=== PATIENT | male | born 1955 | race Caucasian/White ===

== ENCOUNTER 2020-01-05 20:51 | Inpatient (IN) | payer OTHER ==
[2020-01-05] MEDS ORDERED: ASPIRIN 81 MG CHEWABLE TABLETS PO ONE (21:02)
--- NOTE | 2020-01-05 21:04 | PDOC ---
Rapid Medical Evaluation Time Seen by Provider: 01/05/20 21:01 Medical Evaluation: Allergies Allergy/AdvReac Type Severity Reaction Status Date / Time No Known Allergies Allergy Verified 12/17/11 16:52 01/05/20 21:02 CC: feeling of strap around his chest since this afternoon and subsided slightly. no other complaints. Took baby ASA this am Exam: vss, No reproducible CP, Plan: cardiac w/u Discharge Disposition - Diagnosis Chest pain - Referrals - Patient Instructions - Post Discharge Activity
[2020-01-05] MEDS ORDERED: ASPIRIN 81 MG CHEWABLE TABLETS ONE (21:16)
--- NOTE | 2020-01-05 21:26 | PDOC ---
Attending Attestation - Resident Resident Name: Jim Armendariz - ED Attending Attestation I have performed the following: I have examined & evaluated the patient, The case was reviewed & discussed with the resident, I agree w/resident's findings & plan - HPI HPI: 01/05/20 22:48 see resident hpi - Physicial Exam PE: 01/05/20 22:48 see resident exam - Medical Decision Making 01/05/20 22:48 64-year-old male with an episode of anterior chest squeezing that began after eating EKG on arrival shows a sinus rhythm at 81 bpm with a left bundle branch block Unfortunately no old is available for comparison Patient is improved after aspirin and nitroglycerin as well as Tylenol IV Troponin within normal limits at this time We will admit to telemetry observation for further evaluation Discharge - Discharge Information Problems reviewed: Yes Clinical Impression/Diagnosis: Chest pain - Follow up/Referral Referrals: Joe Ku MD [Primary Care Provider] - - Patient Discharge Instructions - Post Discharge Activity
--- NOTE | 2020-01-05 21:28 | PDOC ---
History of Present Illness - General Chief Complaint: Chest Pain Stated Complaint: CHEST TIGHTNESS Time Seen by Provider: 01/05/20 21:01 - History of Present Illness Initial Comments: 01/05/20 21:44 64 M with HLD, obesity presented to the ED for chest pain. Patient had sudden non-exertional chest pain this afternoon shortly after eating dinner. Chest pain located across the chest, felt like belt tying across the chest, pain is 4/10, sometimes radiated to the jaws bilaterally. Denies diaphoresis, N/V/fever/abdominal pain, SOB, unilat leg swelling. Patient never had chest pain. 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 Patient never had kidney stone, gallstone, or shingles. PMH: HLD, migraine. PSH: tonsil removal, kidney donator. Med: propanolol, nortriptant ., lorvastatin Allergy: none SS: denies smoking, drinking, drugs. PCP: ROS GENERAL/CONSTITUTIONAL: No fever or chills. No weakness. HEAD, EYES, EARS, NOSE AND THROAT: No change in vision. No ear pain or discharge. No sore throat. CARDIOVASCULAR: No chest pain or shortness of breath RESPIRATORY: No cough, wheezing, or hemoptysis. GASTROINTESTINAL: No nausea, vomiting, diarrhea or constipation. GENITOURINARY: No dysuria, frequency, or change in urination. MUSCULOSKELETAL: No joint or muscle swelling or pain. No neck or back pain. SKIN: No rash NEUROLOGIC: No headache, vertigo, loss of consciousness, or change in strength/sensation. ENDOCRINE: No increased thirst. No abnormal weight change HEMATOLOGIC/LYMPHATIC: No anemia, easy bleeding, or history of blood clots. ALLERGIC/IMMUNOLOGIC: No hives or skin allergy. PE GENERAL: Awake, alert, and fully oriented, in no acute distress HEAD: No signs of trauma, normocephalic, atraumatic EYES: PERRLA, EOMI, sclera anicteric, conjunctiva clear ENT: Auricles normal inspection, hearing grossly normal, nares patent, oropharynx clear without exudates. Moist mucosa NECK: Normal ROM, supple, no lymphadenopathy, JVD, or masses LUNGS: No distress, speaks full sentences, clear to auscultation bilaterally HEART: Regular rate and rhythm, normal S1 and S2, no murmurs, rubs or gallops, peripheral pulses normal and equal bilaterally. ABDOMEN: Soft, nontender, normoactive bowel sounds. No guarding, no rebound. No masses EXTREMITIES : Normal inspection, Normal range of motion, no edema. No clubbing or cyanosis. NEUROLOGICAL: Cranial nerves II through XII grossly intact. 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 Audit-10AR): Negative In the last yr the pt used illegal drug/Rx for NonMed reason: No Score: Yes response is considered Positive: 0 Screen Result (Positive result requires Nsg. DAST-10): Negative *Physical Exam - Vital Signs Last Vital Signs Temp Pulse Resp BP Pulse Ox 98.4 F 79 19 147/85 97 01/05/20 21:00 01/05/20 21:00 01/05/20 21:00 01/05/20 21:00 01/05/20 21:00 ED Treatment Course - LABORATORY CBC & Chemistry Diagram: 01/05/20 21:15 01/05/20 21:15 Discharge - Discharge Information Problems reviewed: Yes Clinical Impression/Diagnosis: Chest pain Condition: Improved - Admission Yes - Follow up/Referral Referrals: Joe Ku MD [Primary Care Provider] - - Patient Discharge Instructions - Post Discharge Activity
[2020-01-05 21:30] LABS: HEMATOCRIT 46.1 % (35.4-49); HEMOGLOBIN 15.6 GM/dL (11.7-16.9); MCH 30.4 pg (25.7-33.7); MCHC 33.8 g/dl (32.0-35.9); RBC 5.12 M/mm3 (4.00-5.60)
[2020-01-05 21:36] LABS: BASO % 0.6 % (0-2.0); EOS % 8.6 % (0-4.5); LYMPH % 27.1 % (8-40); MEAN PLT VOLUME 8.2 fl (7.5-11.1); MONO % 7.9 % (3.8-10.2); NEUT % 55.8 % (42.8-82.8); PLATELET COUNT 185 K/MM3 (134-434); RDW 13.9 % (11.9-15.9); WHITE BLOOD COUNT 10.4 K/mm3 (4.0-10.0)
[2020-01-05 21:47] LABS: INR 0.95 (0.83-1.09); PROTHROMBIN TIME (PATIENT) 11.2 SEC (9.7-13.0)
[2020-01-05 21:50] LABS: ACTIVATED PTT 26.3 SECONDS (25.2-36.5)
[2020-01-05] MEDS ORDERED: NITROGLYCERIN SUBLINGUAL 1/200 0.3 MG BTL SL ONE (22:04)
[2020-01-05] MEDS ORDERED: ACETAMINOPHEN 1000 MG/100 ML VIAL (NON FORMULARY) IVPB ONE (22:04)
[2020-01-05] MEDS ORDERED: ACETAMINOPHEN INJECTION 100 ML IVPB ONE (22:09)
[2020-01-05 22:17] LABS: ALBUMIN 3.8 g/dl (3.4-5.0); ALK PHOS 92 U/L (45-117); ANION GAP 6 MMOL/L (8-16); BLOOD UREA NITROGEN 22.8 mg/dL (7-18); CALCIUM 9.6 mg/dL (8.5-10.1); CHLORIDE 102 mmol/L (98-107); CO2 30 mmol/L (21-32); CREATININE 1.6 mg/dL (0.55-1.3); GLUCOSE,RANDOM 110 mg/dL (74-106); MAGNESIUM 2.3 mg/dL (1.8-2.4); N-TERMINAL BNP 78.3 pg/ml (5-125); POTASSIUM 4.8 mmol/L (3.5-5.1); SGOT/AST 30 U/L (15-37); SGPT/ALT 34 U/L (13-61); SODIUM 138 mmol/L (136-145); TOT PROT 7.4 g/dl (6.4-8.2)
[2020-01-05 22:47] LABS: BILIRUBIN,TOTAL 0.9 mg/dL (0.2-1)
--- NOTE | 2020-01-06 | PN ---
Teaching Attending Note Name of Resident: Samuel Ramos ATTENDING PHYSICIAN STATEMENT I saw and evaluated the patient. I reviewed the resident's note and discussed the case with the resident. I agree with the resident's findings and plan as documented. SUBJECTIVE: 64yoM with h/o obesity, HLD, uninephric s/p kidney donation 1997, and migraines who presents with acute onset chest pain since 2pm. Patient reports he has been in his usual state of health, no prior history of CAD or chest pain. After eating lunch he developed nonexertional band-like chest pressure, pain worst on the left, with radiation to bilateral jaws. Denies associated SOB or diaphoresis, no radiation to the back. The pain was constant and did not worsen or improve throughout the afternoon so he decided to come to the ED. Patient notes he had an abnormal EKG about a year ago and had an echocardiogram, has not required cardiology follow up in the interim. No prior stress test. Patient was hemodynamically stable in the ED. EKG showed LBBB, no prior EKGs available for comparison. Initial troponin was negative, creatinine notable 1.6 with unknown baseline. CXR showed nodule in the right midlung, no other acute processes. Chest pain improved s/p sublingual nitroglycerin x1. Patient also received aspirin 162mg and is admitted for further work up and management. ROS: (+) chest pain, headache after receiving nitro (-) fever, cough, syncope, palpitations, nausea/vomiting OBJECTIVE: Vital Signs - 24 hr 01/05/20 21:00 Temperature 98.4 F Pulse Rate 79 Respiratory 19 Rate Blood Pressure 147/85 O2 Sat by Pulse 97 Oximetry (%) Exam: Gen: awake, alert, NAD CV: RRR, no MRG appreciated. Chest pain non-reproducible to palpation Resp: CTAB, unlabored breathing GI: Soft, NT, ND Ext: Trace pitting edema bilaterally Neuro: AOx3, CN II-XII grossly intact Laboratory Results - last 24 hr 01/05/20 01/05/20 01/05/20 21:15 21:15 21:15 WBC 10.4 H RBC 5.12 Hgb 15.6 Hct 46.1 MCV 90.0 MCH 30.4 MCHC 33.8 RDW 13.9 Plt Count 185 MPV 8.2 Absolute Neuts (auto) 5.8 Neutrophils % 55.8 Lymphocytes % 27.1 Monocytes % 7.9 Eosinophils % 8.6 H Basophils % 0.6 Nucleated RBC % 0 PT with INR 11.20 INR 0.95 PTT (Actin FS) 26.3 Sodium 138 Potassium 4.8 Chloride 102 Carbon Dioxide 30 Anion Gap 6 L BUN 22.8 H Creatinine 1.6 H Est GFR (CKD-EPI)AfAm 52.36 Est GFR (CKD-EPI)NonAf 45.18 Random Glucose 110 H Calcium 9.6 Magnesium 2.3 Total Bilirubin 0.9 AST 30 ALT 34 Alkaline Phosphatase 92 Creatine Kinase 101 Troponin I < 0.02 B-Natriuretic Peptide 78.3 Total Protein 7.4 Albumin 3.8 ASSESSMENT AND PLAN: 64yoM with h/o obesity, HLD, uninephric s/p kidney donation 1997, and migraines who presents with acute onset chest pain since 2pm admitted for ACS rule out. Chest pain, ACS rule out Does have numerous risk factors for CAD including obesity, HLD Characteristics of his chest pain are concerning for unstable angina s/p aspirin and nitroglycerin in ED with improvement; initial troponin negative EKG with LBBB, no priors available - check fasting lipid panel, A1c - serial EKG - tele - troponins - continue aspirin - NPO overnight pending possible nuclear stress test - cardiology consult in AM - please obtain outpatient EKG for comparison if possible Uninephric, elevated creatinine Creatinine 1.6 on admission, baseline unknown - gentle hydration overnight while NPO - trend renal function - avoid nephrotoxic meds - obtain outpatient labs in AM if possible Chronic, stable HLD: high-intensity statin DVT ppx: heparin subq
[2020-01-06] MEDS ORDERED: SODIUM CHLORIDE 1,000 ML IV SCH ×2 (01:00→13:00)
--- NOTE | 2020-01-06 01:01 | HP ---
CHIEF COMPLAINT: "band-like chest pressure" PCP: Dr. Ku HISTORY OF PRESENT ILLNESS: 64 year old male patient with past medical history of HLD, Obestiy, and Migraine, who presented to the emergency room with a band-like chest pressure that began in the afternoon after lunch, where he ate a hotdog. The patient denies any precipitating events. The patient denies any past occurrences of his symptoms. The patient did not think much of his chest pressure until dinner, when he felt a little tired. He called his brother, who had an DE at age 59, and asked whether his chest pressure could be a heart attack, and his brother advised him to go to the emergency room. The chest pressure is constant, radiates to the jaws, and was 5/10 in intensity when the patient came to the ED. Nothing makes the pressure worse. The patient tried to take Tums and and bicarb, neither of which made the pressure better. The patient received nitro in the ED, which did succeed in alleviating the pressure; however, the patient still has mild pressure centered around his left armpit area. The patient reports taking a low dose propranolol and nortriptyline for migraine prophylaxis. He takes them every day and is compliant with taking his medications. He has not had any migraines in the recent past. The patient was sent last year to the [facility] Dr. Erin Ho by his PCP because of a "lab abnormality". Dr. Ho performed tests and told the patient that he is healthy. The patient does not recall any stress test in the recent past. The patient is not aware of any ECG abnormality such as a left bundle branch block in the past. He had an ECHO in 03/2019 which showed impaired left ventricular relaxation with an EF of 50%. ER course was notable for: (1) ECG (NSR 81bpm left bundle branch block and 1st degree AV block [WV interval 252ms] QTc 487ms). No old ECG was found to compare. 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 Rides a bike, but hasn't been riding his bike in 2 months due to COVID. Diet: "Balanced diet" that includes fruits and vegetables. Was on the keto diet before COVID started and lost weight, but ever since VI has been eating more cookies, so his weight has increased from 225 to 240lbs. Allergies No Known Allergies Allergy (Verified 12/17/11 16:52) HOME MEDICATIONS: REVIEW OF SYSTEMS CONSTITUTIONAL: mild fatigue Absent: no fever, no chills, no body aches HEENT: acid taste in mouth Absent: CARDIOVASCULAR: band-like chest pressure Absent: no acid reflux, no palpitations RESPIRATORY: Absent: no shortness of breath GASTROINTESTINAL: Absent: no nausea, no vomiting, no diarrhea, no constipation GENITOURINARY: Absent: no dysuria, no foamy urine NEUROLOGIC: Absent: no headache PHYSICAL EXAMINATION Vital Signs - 24 hr 01/05/20 01/06/20 21:00 00:17 Temperature 98.4 F Pulse Rate 79 Pulse Rate [ 78 Apical] Respiratory 19 16 Rate Blood Pressure 147/85 Blood Pressure 138/78 [Left Arm] O2 Sat by Pulse 97 98 Oximetry (%) GENERAL: Awake, alert, and fully oriented, in no acute distress. HEAD: Normal with no signs of trauma. EYES: Pupils equal, round and reactive to light, extraocular movements intact. No lid lag. EARS, NOSE, THROAT: Ears normal, nares patent, oropharynx clear without exudates. Moist mucous membranes. NECK: Normal range of motion, supple without lymphadenopathy, JVD, or masses. LUNGS: Breath sounds equal, clear to auscultation bilaterally. No wheezes, and no crackles. No accessory muscle use. HEART: Regular rate and rhythm, normal S1 and S2 without murmur, rub or gallop. ABDOMEN: Soft, nontender, not distended, normoactive bowel sounds, no guarding, no rebound, no masses. MUSCULOSKELETAL: Normal range of motion at all joints. No bony deformities or tenderness. No reproducible symptoms on palpation of chest wall. UPPER EXTREMITIES: 2+ pulses, warm, well-perfused. No cyanosis. No clubbing. No peripheral edema. LOWER EXTREMITIES: 2+ pulses, warm, well-perfused. No calf tenderness. 1+ pitting edema bilaterally. NEUROLOGICAL: Normal speech. PSYCHIATRIC: Cooperative. Good eye contact. Appropriate mood and affect. SKIN: Warm, dry, normal turgor, no rashes or lesions noted, normal capillary refill. Laboratory Results - last 24 hr 01/05/20 01/05/20 01/05/20 21:15 21:15 21:15 WBC 10.4 H RBC 5.12 Hgb 15.6 Hct 46.1 MCV 90.0 MCH 30.4 MCHC 33.8 RDW 13.9 Plt Count 185 MPV 8.2 Absolute Neuts (auto) 5.8 Neutrophils % 55.8 Lymphocytes % 27.1 Monocytes % 7.9 Eosinophils % 8.6 H Basophils % 0.6 Nucleated RBC % 0 PT with INR 11.20 INR 0.95 PTT (Actin FS) 26.3 Sodium 138 Potassium 4.8 Chloride 102 Carbon Dioxide 30 Anion Gap 6 L BUN 22.8 H Creatinine 1.6 H Est GFR (CKD-EPI)AfAm 52.36 Est GFR (CKD-EPI)NonAf 45.18 Random Glucose 110 H Calcium 9.6 Magnesium 2.3 Total Bilirubin 0.9 AST 30 ALT 34 Alkaline Phosphatase 92 Creatine Kinase 101 Troponin I < 0.02 B-Natriuretic Peptide 78.3 Total Protein 7.4 Albumin 3.8 ASSESSMENT/PLAN: 64 year old male patient with past medical history of HLD, Obestiy, and Migraine, who presented to the emergency room with a band-like chest pressure radiating to the jaws. ECG showed left bundle branch block. Chest pressure was alleviated with nitro. 1. Possible unstable angina - Band-like chest pressure radiating to the jaws - Possibly new-onset left bundle branch block on ECG. No old ECG could be found to compare. > Consulted Cardio > Tele > Repeat Trop > Repeat ECG > Lipid Panel and Cholesterol > A1C > Daily ASA > Possible outpatient stress test depending on Cardio's recommendations 2. VERONIQUE - Creatinine of 1.6 > Gentle IV Fluid Hydration > Monitoring Creatinine 3. Lung Nodule - Hyperdense nodule in right midlung 1.7x1.1cm suggestive of a calcified nodule > Outpatient f/u with Pulmonology 4. HLD > Atorvastatin Medications were reconcilliated with the pharmacy at 4:00am 01/06/2020. #FEN - Normal Saline @ 43ml/hr. Monitor Electrolytes DVT PPx - Heparin SQ Family Medical History Family History: As Documented Family Hx Cardiac Disorders: Brother (DE at age 59) Visit type - Emergency Visit Emergency Visit: Yes ED Registration Date: 01/05/20 Care time: The patient presented to the Emergency Department on the above date and was hospitalized for further evaluation of their emergent condition. - New Patient This patient is new to me today: Yes Date on this admission: 01/06/20 - Critical Care Critical Care patient: No ATTENDING PHYSICIAN STATEMENT I saw and evaluated the patient. I reviewed the resident's note and discussed the case with the resident. I agree with the resident's findings and plan as documented. SUBJECTIVE: OBJECTIVE: ASSESSMENT AND PLAN:
[2020-01-06] MEDS ORDERED: HEPARIN NA (PORCINE) 5,000 UNITS/ML 1ML VIAL ONE ×2 (06:08→14:36)
[2020-01-06] MEDS: HEPARIN NA (PORCINE) 5,000 UNITS/ML 1ML VIAL SQ SCH ×2 (06:11→14:33)
[2020-01-06 08:37] LABS: BASO % 0.8 % (0-2.0); EOS % 9.1 % (0-4.5); HEMATOCRIT 44.5 % (35.4-49); LYMPH % 27.1 % (8-40); MCH 30.3 pg (25.7-33.7); MCHC 33.6 g/dl (32.0-35.9); MEAN CELL VOLUME 90.2 fl (80-96); MEAN PLT VOLUME 8.1 fl (7.5-11.1); MONO % 8.7 % (3.8-10.2); NEUT % 54.3 % (42.8-82.8); PLATELET COUNT 173 K/MM3 (134-434); RBC 4.94 M/mm3 (4.00-5.60); RDW 13.6 % (11.9-15.9); WHITE BLOOD COUNT 8.9 K/mm3 (4.0-10.0)
[2020-01-06 08:44] LABS: POTASSIUM 4.3 mmol/L (3.5-5.1)
[2020-01-06 08:58] LABS: BLOOD UREA NITROGEN 21.9 mg/dL (7-18); CALCIUM 8.9 mg/dL (8.5-10.1); CREATININE 1.5 mg/dL (0.55-1.3); MAGNESIUM 2.4 mg/dL (1.8-2.4); PHOSPHOROUS 3.6 mg/dL (2.5-4.9)
[2020-01-06] MEDS ORDERED: ASPIRIN COATED 81 MG TABLET.EC PO SCH (10:00)
--- NOTE | 2020-01-06 10:10 | EKG ---
Test Reason : Blood Pressure : / mmHG Vent. Rate : 081 BPM Atrial Rate : 081 BPM P-R Int : 252 ms QRS Dur : 156 ms QT Int : 420 ms P-R-T Axes : 055 029 096 degrees QTc Int : 487 ms SINUS RHYTHM WITH 1ST DEGREE A-V BLOCK LEFT BUNDLE BRANCH BLOCK ABNORMAL ECG NO PREVIOUS ECGS AVAILABLE Confirmed by ARGENIS NELSON MD ([id number]) on 01/06/2020 10:10:21 AM Referred By: Confirmed By:ARGENIS NELSON MD
[2020-01-06] MEDS ORDERED: ASPIRIN COATED 81 MG TABLET.EC ONE (10:33)
[2020-01-06] MEDS ORDERED: REGADENOSON 0.4 MG/5 ML PRE-FILLED SYRINGE IVPUSH ONE ×2 (12:00→13:17)
--- NOTE | 2020-01-06 12:44 | CON.CARD ---
Cardiology Consult (text) - Consultation Consultation Note: cc: cp hpi: 64 m hx htn, hld, here with cp. Yesterday was relaxing and noticed cp. [place] like pressure across front of chest. No radiation, no other sxs. No sob palps dizzy loc pnd orthopnea le edema. CP resolved now. Was doing some lifting last week and thought maybe he had sore muscle. pmh: per hpi psh: back surgery social: no tob fam: brother with cad, mi 59 ros: per hpi; all others nl meds: Home Medications Medication Instructions Recorded Lovastatin 40 mg PO DAILY 01/06/20 Nortriptyline HCl [Pamelor -] 50 mg PO HS 01/06/20 propRANOLol HCL [Propranolol HCl 120 mg PO HS 01/06/20 ER] Vital Signs Period Temp Pulse Resp BP Sys/Alcaraz Pulse Ox Last 24 Hr 98 F-98.4 F 67-79 15-19 132-147/67-85 94-100 nad no jvd rrr s1s2 no mrg cta bl nl eff aao3 no le e/c/c abd nt nd pos bs no jaundice diaphroesis pos dp pt no carotid bruits aao3 Laboratory Last Values WBC 8.9 K/mm3 (4.0-10.0) 01/06/20 07:05 RBC 4.94 M/mm3 (4.00-5.60) 01/06/20 07:05 Hgb 15.0 GM/dL (11.7-16.9) 01/06/20 07:05 Hct 44.5 % (35.4-49) 01/06/20 07:05 MCV 90.2 fl (80-96) 01/06/20 07:05 MCH 30.3 pg (25.7-33.7) 01/06/20 07:05 MCHC 33.6 g/dl (32.0-35.9) 01/06/20 07:05 RDW 13.6 % (11.9-15.9) 01/06/20 07:05 Plt Count 173 K/MM3 (134-434) 01/06/20 07:05 MPV 8.1 fl (7.5-11.1) 01/06/20 07:05 Absolute Neuts (auto) 4.8 K/mm3 (1.5-8.0) 01/06/20 07:05 Neutrophils % 54.3 % (42.8-82.8) 01/06/20 07:05 Lymphocytes % 27.1 % (8-40) 01/06/20 07:05 Monocytes % 8.7 % (3.8-10.2) 01/06/20 07:05 Eosinophils % 9.1 % (0-4.5) H 01/06/20 07:05 Basophils % 0.8 % (0-2.0) 01/06/20 07:05 Nucleated RBC % 0 % (0-0) 01/06/20 07:05 PT with INR 11.20 SEC (9.7-13.0) 01/05/20 21:15 INR 0.95 (0.83-1.09) 01/05/20 21:15 PTT (Actin FS) 26.3 SECONDS (25.2-36.5) 01/05/20 21:15 Sodium 140 mmol/L (136-145) 01/06/20 07:05 Potassium 4.3 mmol/L (3.5-5.1) 01/06/20 07:05 Chloride 105 mmol/L (98-107) 01/06/20 07:05 Carbon Dioxide 27 mmol/L (21-32) 01/06/20 07:05 Anion Gap 7 MMOL/L (8-16) L 01/06/20 07:05 BUN 21.9 mg/dL (7-18) H 01/06/20 07:05 Creatinine 1.5 mg/dL (0.55-1.3) H 01/06/20 07:05 Est GFR (CKD-EPI)AfAm 56.61 01/06/20 07:05 Est GFR (CKD-EPI)NonAf 48.84 01/06/20 07:05 Random Glucose 95 mg/dL (74-106) 01/06/20 07:05 Hemoglobin A1c % 5.5 % (4.2-6.3) 01/06/20 07:05 Calcium 8.9 mg/dL (8.5-10.1) 01/06/20 07:05 Phosphorus 3.6 mg/dL (2.5-4.9) 01/06/20 07:05 Magnesium 2.4 mg/dL (1.8-2.4) 01/06/20 07:05 Total Bilirubin 0.9 mg/dL (0.2-1) 01/05/20 21:15 AST 30 U/L (15-37) 01/05/20 21:15 ALT 34 U/L (13-61) 01/05/20 21:15 Alkaline Phosphatase 92 U/L (45-117) 01/05/20 21:15 Creatine Kinase 101 U/L (26-308) 01/05/20 21:15 Troponin I < 0.02 ng/ml (0.00-0.05) 01/06/20 07:05 B-Natriuretic Peptide 78.3 pg/ml (5-125) 01/05/20 21:15 Total Protein 7.4 g/dl (6.4-8.2) 01/05/20 21:15 Albumin 3.8 g/dl (3.4-5.0) 01/05/20 21:15 Triglycerides 208 mg/dL (0-150) H 01/06/20 07:05 Cholesterol 161 mg/dL (50-200) 01/06/20 07:05 Total LDL Cholesterol 94 mg/dL (5-100) 01/06/20 07:05 HDL Cholesterol 40 mg/dL (40-60) 01/06/20 07:05 cxr: no chf echo 03/2019: low nl lvef, nl rv, mild mr, mild tr, nl rvsp ecg: sr, old lbbb a/p: 64 m hx htn, hld, here with cp. cp: -resolved now -trops neg, no signs acs -ecg with old lbbb -recent echo unremarkable -given risk factors and fam hx will check nuclear stress test, if benign then ok for dc from cardiac pov htn: -cont home med hld: -cont statin
--- NOTE | 2020-01-06 13:45 | ECHO ---
Name: ANN-MARIE GARCIA Exam:Adult Echocardiogram Study Date: 01/06/2020 11:20 AM Age: 64 yrs Height: 74 in Weight: 240 lb BSA: 2.3 m2 MMode/2D Measurements & Calculations IVSd: 0.85 cm Ao root diam: 3.1 cm LVIDd: 4.4 cm LA dimension: 2.3 cm LVIDs: 3.4 cm ACS: 2.0 cm LVPWd: 0.88 cm EDV(Teich): 88.1 ml LVOT diam: 2.0 cm ESV(Teich): 48.4 ml LVLd ap4: 7.2 cm SV(MOD-sp4): 39.0 ml EDV(MOD-sp4): 84.0 ml LVLs ap4: 6.0 cm ESV(MOD-sp4): 45.0 ml LAV (MOD-bp): 25.0 ml TAPSE: 2.5 cm RV S Erick: 10.2 cm/sec Doppler Measurements & Calculations Ao V2 max: 100.4 cm/sec LV V1 max P.6 mmHg Ao max P.0 mmHg LV V1 mean P.94 mmHg Ao V2 mean: 66.4 cm/sec LV V1 max: 63.7 cm/sec Ao mean P.0 mmHg LV V1 mean: 46.1 cm/sec Ao V2 VTI: 16.8 cm LV V1 VTI: 11.5 cm AJITH(I,D): 2.1 cm2 AJITH(V,D): 1.9 cm2 SV(LVOT): 35.1 ml TR max erick: 219.9 cm/sec TR max P.7 mmHg PA V2 max: 92.3 cm/sec PI end-d erick: 99.1 cm/sec PA max P.4 mmHg PA acc slope: 497.4 cm/sec2 PA acc time: 0.11 sec Med Peak E' Erick: 5.9 cm/sec PA pr(Accel): 29.9 mmHg Lat Peak E' Erick: 9.8 cm/sec Tech Comments TDS due to orientation of patient's heart. Procedure A complete two-dimensional transthoracic echocardiogram was performed (2D, M-mode, Doppler and color flow Doppler). Left Ventricle The left ventricle is normal in size. Left ventricular systolic function is low normal. Ejection Frac tion = 50%. Septal motion is consistent with conduction abnormality. Right Ventricle The right ventricle is normal in size and function. Atria Normal left and right atrial size and function. Mitral Valve There is no mitral regurgitation noted. Tricuspid Valve There is trace tricuspid regurgitation. There was insufficient TR detected to calculate RV systolic p ressure. Aortic Valve No hemodynamically significant valvular aortic stenosis. No aortic regurgitation is present. Pulmonic Valve There is no pulmonic valvular regurgitation. Great Vessels The aortic root is normal size. Pericardium/Pleura There is no pericardial effusion. Interpretation Summary Left ventricular systolic function is low normal. Septal motion is consistent with conduction abnormality. The right ventricle is normal in size and function. There is trace tricuspid regurgitation. MD Diaz Bee 01/06/2020 01:44 PM
--- NOTE | 2020-01-06 13:59 | PN ---
Teaching Attending Note Name of Resident: Attila eWrner ATTENDING PHYSICIAN STATEMENT I saw and evaluated the patient. I reviewed the resident's note and discussed the case with the resident. I agree with the resident's findings and plan as documented. SUBJECTIVE: patient feels well, has no complaints OBJECTIVE: Vital Signs Period Temp Pulse Resp BP Sys/Alcaraz Pulse Ox Last 24 Hr 98 F-98.4 F 67-79 15-19 132-147/67-85 94-100 GENERAL: Awake, alert, and fully oriented, in no acute distress. HEAD: Normal with no signs of trauma. EYES: Pupils equal, round and reactive to light, extraocular movements intact, sclera anicteric, conjunctiva clear. No lid lag. EARS, NOSE, THROAT: Ears normal, nares patent, oropharynx clear without exudates. Moist mucous membranes. NECK: Normal range of motion, supple without lymphadenopathy, JVD, or masses. LUNGS: Breath sounds equal, clear to auscultation bilaterally. No wheezes, and no crackles. No accessory muscle use. HEART: Regular rate and rhythm, normal S1 and S2 without murmur, rub or gallop. ABDOMEN: Soft, nontender, not distended, normoactive bowel sounds, no guarding, no rebound, no masses. No hepatomegaly or splenomegaly. obese MUSCULOSKELETAL: Normal range of motion at all joints. No bony deformities or tenderness. No CVA tenderness. UPPER EXTREMITIES: 2+ pulses, warm, well-perfused. No cyanosis. No clubbing. Cap refill <2 seconds. No peripheral edema. LOWER EXTREMITIES: 2+ pulses, warm, well-perfused. No calf tenderness. No peripheral edema. NEUROLOGICAL: Cranial nerves II-XII intact. Normal speech. Normal gait. PSYCHIATRIC: Cooperative. Good eye contact. Appropriate mood and affect. SKIN: Warm, dry, normal turgor, no rashes or lesions noted. ASSESSMENT AND PLAN: 64 y/o M with Hx of HLD, Obesity who presents with chest pain Chest Pain: ACS ruled out EKG with LBBB morphology Check Stress test Check Echo Check Lipid Panel, A1c, TSH Cont ASA, Statin PRN SL Nitro Lung Nodule: Will need outpatient follow up with CT scan Rest of plan as per resident note
--- NOTE | 2020-01-06 15:28 | EKG ---
Test Reason : Blood Pressure : / mmHG Vent. Rate : 079 BPM Atrial Rate : 079 BPM P-R Int : 224 ms QRS Dur : 150 ms QT Int : 418 ms P-R-T Axes : 058 014 098 degrees QTc Int : 479 ms SINUS RHYTHM WITH 1ST DEGREE A-V BLOCK LEFT BUNDLE BRANCH BLOCK ABNORMAL ECG WHEN COMPARED WITH ECG OF 05-JAN-2020 21:22, NO SIGNIFICANT CHANGE WAS FOUND Confirmed by LESLIE BISHOP, ARGENIS ([id number]) on 01/06/2020 3:28:27 PM Referred By: Confirmed By:ARGENIS NELSON MD
--- NOTE | 2020-01-06 16:28 | DS ---
Physical Exam: SUBJECTIVE: Patient seen and examined at bedside. No acute events reported overnight. This morning, patient reports resolution of chest pain symptoms. OBJECTIVE: Vital Signs Period Temp Pulse Resp BP Sys/Alcaraz Pulse Ox Last 24 Hr 98 F-98.4 F 67-81 15-19 132-147/67-85 94-100 PHYSICAL EXAM GENERAL: AAOx3, in no acute distress HEENT: NCAT, PERRLA, EOMI, sclera anicteric, conjunctiva clear, oropharynx clear w/o exudates. MMM. NECK: Normal ROM, supple, no lymphadenopathy, JVD, or masses LUNGS: CTABL no wheezes/ rhonchi/ rales. No distress, speaks in full sentences. No increased work of breathing. HEART: RRR, normal S1 S2, no M/R/G, peripheral pulses 2+ and equal b/l ABDOMEN: Soft, NTND, + BS. No guarding or rebound. No hepatomegaly or splenomegaly. MSK: ROM WNL EXTREMITIES: Normal inspection. No peripheral edema. No clubbing or cyanosis. NEUROLOGICAL: CN II-XII intact. Normal speech, normal gait, no focal sensorimotor deficits. SKIN: Warm, Dry, normal turgor, no rashes or lesions noted LABS Laboratory Results - last 24 hr CBC, BMP 01/06/20 07:05 01/06/20 07:05 01/05/20 01/05/20 01/05/20 21:15 21:15 21:15 WBC 10.4 H RBC 5.12 Hgb 15.6 Hct 46.1 MCV 90.0 MCH 30.4 MCHC 33.8 RDW 13.9 Plt Count 185 MPV 8.2 Absolute Neuts (auto) 5.8 Neutrophils % 55.8 Lymphocytes % 27.1 Monocytes % 7.9 Eosinophils % 8.6 H Basophils % 0.6 Nucleated RBC % 0 PT with INR 11.20 INR 0.95 PTT (Actin FS) 26.3 Sodium 138 Potassium 4.8 Chloride 102 Carbon Dioxide 30 Anion Gap 6 L BUN 22.8 H Creatinine 1.6 H Est GFR (CKD-EPI)AfAm 52.36 Est GFR (CKD-EPI)NonAf 45.18 Random Glucose 110 H Hemoglobin A1c % Calcium 9.6 Phosphorus Magnesium 2.3 Total Bilirubin 0.9 AST 30 ALT 34 Alkaline Phosphatase 92 Creatine Kinase 101 Troponin I < 0.02 B-Natriuretic Peptide 78.3 Total Protein 7.4 Albumin 3.8 Triglycerides Cholesterol Total LDL Cholesterol HDL Cholesterol TSH 01/06/20 01/06/20 01/06/20 07:05 07:05 07:05 WBC 8.9 RBC 4.94 Hgb 15.0 Hct 44.5 MCV 90.2 MCH 30.3 MCHC 33.6 RDW 13.6 Plt Count 173 MPV 8.1 Absolute Neuts (auto) 4.8 Neutrophils % 54.3 Lymphocytes % 27.1 Monocytes % 8.7 Eosinophils % 9.1 H Basophils % 0.8 Nucleated RBC % 0 PT with INR INR PTT (Actin FS) Sodium 140 Potassium 4.3 Chloride 105 Carbon Dioxide 27 Anion Gap 7 L BUN 21.9 H Creatinine 1.5 H Est GFR (CKD-EPI)AfAm 56.61 Est GFR (CKD-EPI)NonAf 48.84 Random Glucose 95 Hemoglobin A1c % 5.5 Calcium 8.9 Phosphorus 3.6 Magnesium 2.4 Total Bilirubin AST ALT Alkaline Phosphatase Creatine Kinase Troponin I B-Natriuretic Peptide Total Protein Albumin Triglycerides 208 H Cholesterol 161 Total LDL Cholesterol 94 HDL Cholesterol 40 TSH 3.92 H 01/06/20 07:05 WBC RBC Hgb Hct MCV MCH MCHC RDW Plt Count MPV Absolute Neuts (auto) Neutrophils % Lymphocytes % Monocytes % Eosinophils % Basophils % Nucleated RBC % PT with INR INR PTT (Actin FS) Sodium Potassium Chloride Carbon Dioxide Anion Gap BUN Creatinine Est GFR (CKD-EPI)AfAm Est GFR (CKD-EPI)NonAf Random Glucose Hemoglobin A1c % Calcium Phosphorus Magnesium Total Bilirubin AST ALT Alkaline Phosphatase Creatine Kinase Troponin I < 0.02 B-Natriuretic Peptide Total Protein Albumin Triglycerides Cholesterol Total LDL Cholesterol HDL Cholesterol TSH HOSPITAL COURSE: 64 year old male patient with past medical history of HLD, Obestiy, and Migraine, who presented to the emergency room with a band-like chest pressure radiating to the jaws. ECG showed left bundle branch block. Chest pressure was alleviated with nitro. Possibly new-onset left bundle branch block on ECG. No old ECG could be found to compare. Patient was admitted to telemetry with cardiology consult. Cardiac workup including repeat EKG, echocardiogram, stress test was negative for acute cardiac events. Troponins were negative throughout the patient's stay. Patient had an elevated creatinine at admission which was treated with gentle IV hydration. Incidental findings upon imaging was a hyperdense lung nodule in the right mid lung 1.7 x 1.1 cm. Patient was told to follow up with his PCP about the nodule. Patient was discharged after multiple cardiac imaging was negative for an acute cardiac process with outpatient cardiology followup within 1 week. Date of Admission:01/05/20 01/05/2020- portable CXR- Impression: Hyperdense nodule in the right midlung measuring 1.7 x 1.1 cm suggestive of a calcified nodule. Correlation with a nonemergent CT scan of the chest would be helpful for further evaluation and w ould serve as a baseline for future follow-up. 01/06/2020- sinus rhythm with 1st degree AV block. LBBB, abnormal EKG, 01/06/2020- Left ventricular systolic function is low normal, septal motion is con sistent with conduction abnormality, right ventricle is normal in size and function. There is trace tricuspid regurgitation 01/06/2020- G AMRIT DEBRA 1 DAY- EXERCISE RESULTS: Nondiagnostic stress ecg due to baseline LBBB. NUCLEAR RESULTS: No ischemia. LVEF 52%. Date of Discharge: 01/06/20 Minutes to complete discharge: 36 Discharge Summary Problems reviewed: Yes Reason For Visit: CHEST PAIN Current Active Problems Chest pain (Acute) Condition: Stable - Instructions Diet, Activity, Other Instructions: Your visit: You were admitted to the hospital for chest pain. We found no acute abnormalities of your heart. You were treated with fluids and medications with improvement of your symptoms. -During your visit, we did a x-ray of your chest which showed a 1.7 x 1.1 cm nodule in your right lung. Please follow up with your Primary Care Provider about this. Cardiac Stress Test Results: Exercise Hemodynamics: Resting heart rate was 93 BPM, peak Lexiscan infusion heart rate was 108 BPM. representing- of the maximum predicted heart rate. Resting BP was 122/78 mm Hg. Peak Lexiscan infusion BP was 146/86 mm/Hg. Electrocardiographic findings: baseline sinus rhythm with left bundle branch block. Nondiagnostic stress ecg due to baseline left bundle branch block. Gated Perfusion scan and Spect images: small size, mild intensity fixed defects of inferiorlateral and anteroseptal roldan with normal wall motion, c/w artifact, no ischemia. no TID -Exercise Results: Nondiagnostic stress ecg due to baseline left bundle branch block -Nuclear Results: Left ventricular ejection fraction: 52% Medications changes: -Continue to take all your home medications as prescribed. Follow up: - Please follow-up with your Doctor Of Audiology, Dr. Bee in 1 week to go over the imaging of your heart that we did on you. - Visit with your Primary Care Provider, Dr. Ku in 1 weeks to get blood work done to asses your kidney function. Additional Instructions: -You are being discharged to your home. -Please return to the Emergency Department if you experience worsening pain, fevers, chills, shortness of breath, or chest pain, or if you experience any worsening, new or concerning symptoms. Referrals: Diaz Bee MD [Staff Physician] - Joe Ku MD [Primary Care Provider] - Disposition: HOME - Home Medications Comprehensive Discharge Medication List: Ambulatory Orders Ciclopirox Olamine [Ciclopirox] 30 gm TP BID 01/06/20 Lovastatin 40 mg PO DAILY 01/06/20 Nortriptyline HCl [Pamelor -] 50 mg PO HS 01/06/20 propRANOLol HCL [Propranolol HCl ER] 120 mg PO HS 01/06/20 This patient is new to me today: Yes Date on this admission: 01/06/20 Emergency Visit: Yes ED Registration Date: 01/05/20 Care time: The patient presented to the Emergency Department on the above date and was hospitalized for further evaluation of their emergent condition. Critical Care patient: No - Discharge Referral Referred to [facility] No ATTENDING PHYSICIAN STATEMENT I saw and evaluated the patient. I reviewed the resident's note and discussed the case with the resident. I agree with the resident's findings and plan as documented. SUBJECTIVE: OBJECTIVE: ASSESSMENT AND PLAN:
[2020-01-06 16:52] VITALS: BP 145/74; PULSE 80; TEMP 97.7; BMI 32.5
[2020-01-06] MEDS ORDERED: ATORVASTATIN CA 40 MG TABLET (FP) PO SCH (22:00)
[2020-01-06] MEDS ORDERED: NORTRIPTYLINE HCL 50 MG CAPSULE PO SCH (22:00)
== END 2020-01-06 17:45 | disposition home or self-care (01) | DRG 313 ==
LOC: JER 20:51 → OBSVTOIN 22:51 → JERBED 22:51 → J4W 01-06 15:38
PROVIDERS: ADMIT Hospitalist; ATTEND Internal Medicine
DX: R07.89 Other chest pain (principal); N17.9 Acute kidney failure, unspecified; E78.5 Hyperlipidemia, unspecified; E66.9 Obesity, unspecified; G43.909 Migraine, unspecified, not intractable, without status migrainosus; I44.7 Left bundle-branch block, unspecified; I44.0 Atrioventricular block, first degree; R91.1 Solitary pulmonary nodule; Z68.32 Body mass index [BMI] 32.0-32.9, adult
CPT/HCPCS: 36415; 71045-TC-FY; 78452-TC; 80048; 80053; 80061; 82550; 83036; 83721; 83735; 83880; 84100; 84443; 84484; 85025; 85610; 85730; 93005; 93010; 93017; 93306-TC; 99285-25; A9502; J0131; J1644; J2785; U0003

== ENCOUNTER 2020-02-18 13:23 | Inpatient (IN) | payer OTHER ==
--- NOTE | 2020-02-18 13:42 | PDOC ---
Rapid Medical Evaluation Chief Complaint: Shortness of Breath Time Seen by Provider: 02/18/20 13:39 Medical Evaluation: Allergies Allergy/AdvReac Type Severity Reaction Status Date / Time morphine AdvReac Mild Verified 02/18/20 13:28 Vital Signs Temp Pulse Resp BP Pulse Ox 98.7 F 88 22 H 138/76 96 02/18/20 13:29 02/18/20 13:29 02/18/20 13:29 02/18/20 13:29 02/18/20 13:29 02/18/20 13:40 I have performed a brief in-person evaluation of this patient. The patient presents with a chief complaint of: Patient with no significant past medical history present with complaint of 3-day history of persistent shortness of breath worsens when he goes up a flight of stairs. Patient was seen in urgent care today for shortness of breath and was advised to come to emergency room. Denies chest pain, palpitation, cough, fever, chills, dizziness. Patient present with a EKG from urgent care which shows bundle branch block is with some PVCs. Denies any other symptoms Pertinent physical exam findings: Regular heart rate and rhythm. Lungs clear to auscultation bilateral with patient with mild labored breathing I have ordered the following: EKG The patient will proceed to the ED for further evaluation. Discharge Disposition - Diagnosis SOB (shortness of breath) on exertion - Discharge Dispostion Condition at time of disposition: Stable - Referrals - Patient Instructions - Post Discharge Activity
--- NOTE | 2020-02-18 14:14 | PDOC ---
History of Present Illness - General Chief Complaint: Shortness of Breath Stated Complaint: SHORTNESS OF BREATH Time Seen by Provider: 02/18/20 13:39 History Source: Patient - History of Present Illness Initial Comments: 02/18/20 14:13 64M w/hx HLD, migraines p/w two days of worsening dyspnea, orthopnea. He reports that two days ago he realized that he was increasingly short of breath with exertion while walking around the house. He reports dutifully remaining in quarantine and maintaining safe social distancing, except for occasionally watching his 4yo granddaughter. He reports that he has needed to prop himself up to sleep at night, and that his sob worsens while laying flat. He reports presenting to Urgent Care today for his worsening shortness of breath and dyspnea, and was found to have O2% to 96% on room air that dropped to 90% with ambulation. He denies any lower extremity swelling, fevers, chills, cough, weakness, confusion, chest pain, or palpitations. 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 Audit-10AR): Negative In the last yr the pt used illegal drug/Rx for NonMed reason: No Score: Yes response is considered Positive: 0 Screen Result (Positive result requires Nsg. DAST-10): Negative Review of Systems - Review of Systems Able to Perform ROS?: Yes Comments:: 02/18/20 15:01 GENERAL/CONSTITUTIONAL: No fever or chills. No weakness. HEAD, EYES, EARS, NOSE AND THROAT: No change in vision. No ear pain or dischar ge. No sore throat. CARDIOVASCULAR: Shortness of breath. Orthopnea. No chest pain RESPIRATORY: No cough, wheezing, or hemoptysis. GASTROINTESTINAL: No nausea, vomiting, diarrhea or constipation. GENITOURINARY: No dysuria, frequency, or change in urination. MUSCULOSKELETAL: No joint or muscle swelling or pain. No neck or back pain. SKIN: No rash NEUROLOGIC: No headache, vertigo, loss of consciousness, or change in strength/sensation. ENDOCRINE: No increased thirst. No abnormal weight change HEMATOLOGIC/LYMPHATIC: No anemia, easy bleeding, or history of blood clots. ALLERGIC/IMMUNOLOGIC: No hives or skin allergy. *Physical Exam - Vital Signs Last Vital Signs Temp Pulse Resp BP Pulse Ox 98.7 F 88 22 H 138/76 96 02/18/20 13:29 02/18/20 13:29 02/18/20 13:29 02/18/20 13:29 02/18/20 13:29 - Physical Exam 02/18/20 15:04 GENERAL: Awake, alert, and fully oriented, in no acute distress HEAD: No signs of trauma, normocephalic, atraumatic EYES: PERRLA, EOMI, sclera anicteric, conjunctiva clear ENT: Auricles normal inspection, hearing grossly normal, nares patent, oropharynx clear without exudates. Moist mucosa NECK: Normal ROM, supple, no lymphadenopathy, JVD, or masses LUNGS: No distress, speaks full sentences, clear to auscultation bilaterally HEART: Regular rate and rhythm, normal S1 and S2, no murmurs, rubs or gallops, peripheral pulses normal and equal bilaterally. ABDOMEN: Soft, nontender, normoactive bowel sounds. No guarding, no rebound. No masses EXTREMITIES : Normal inspection, Normal range of motion, no edema. No clubbing or cyanosis NEUROLOGICAL: Cranial nerves II through XII grossly intact. Normal speech, normal gait, no focal sensorimotor deficits SKIN: Warm, Dry, normal turgor, no rashes or lesions noted ED Treatment Course - LABORATORY CBC & Chemistry Diagram: 02/18/20 14:15 02/18/20 14:15 Medical Decision Making - Medical Decision Making 02/18/20 15:12 64M w.hx HLD, remote nephrectomy (donated) p/w two days of worsening sob, orthopnea, body aches, fatigue, with prior EKG showing LBBB without change today, hypoxia on exertion at urgent care. Ddx ACS given cardiac history, worsening sob. New onset CHF possible given worsening orthopnea, sob, cardiac history. COVID-19 possible, while patient has been in quarantine has regular exposure to granddaughter. Plan: CBC CMP EKG CXR Troponin BNP PT/INR, APTT LDH CRP Ferritin Mag Phos Dispo: Admit 02/18/20 15:48 WBC - 13.6 BNP - 347 (100s in january) Cr - 1.5 (baseline) O2% remain wnl on room air while at rest LDH - 316 CRP - 4.9 Plan for admission for new onset CHF. Early covid possible given elevated inflammatory markers, vs other infectious etiology precipitating CHF Discharge - Discharge Information Problems reviewed: Yes Clinical Impression/Diagnosis: SOB (shortness of breath) on exertion Condition: Stable Disposition: HOME - Follow up/Referral - Patient Discharge Instructions - Post Discharge Activity
--- OUTSIDE RECORDS SUMMARY | 2020-02-18 14:30 | XMS ---
:1955 Author Organization [facility] Support Name Relationship Address Phone [employer] Unavailable [address] [place] [address] NAOMI GARCIA [address] [facility] [phone] [place] [address] NAOMI GARCIA Spouse [address] [facility] [place] [address] Re-disclosure Warning The records that you are about to access may contain information from federally- assisted alcohol or drug abuse programs. If such information is present, then the following federally mandated warning applies: This information has been disclosed to you from records protected by federal confidentiality rules (42 CFR part 2). The federal rules prohibit you from making any further disclosure of this information unless further disclosure is expressly permitted by the written consent of the person to whom it pertains or as otherwise permitted by 42 CFR part 2. A general authorization for the release of medical or other information is NOT sufficient for this purpose. The Federal rules restrict any use of the information to criminally investigate or prosecute any alcohol or drug abuse patient.The records that you are about to access may contain highly sensitive health information, the redisclosure of which is protected by Article 27-F of the [facility] Public Health law. If you continue you may haveaccess to information: Regarding HIV / AIDS; Provided by facilities licensed or operated by the [facility] Office of Mental Health; or Provided by the [facility] Office for People With Developmental Disabilities. If such information is present, then the following [facility] mandated warning applies: This information has been disclosed to you from confidential records which are protected by state law. State law prohibits you from making any further disclosure of this information without the specific written consent of the person to whom it pertains, or as otherwise permitted by law. Any unauthorized further disclosure in violation of state law may result in a fine or senior living sentence or both. A general authorization for the release of medical or other information is NOT sufficient authorization for further disclosure. Insurance Providers Payer name Policy type Policy ID Covered Covered constitution party's Policy P kinga / Coverage constitution party ID relationship to Jimenes Inf ormation type jimenes [employer] [id number] SP [id number] HEALTHCARE PPO [employer]ET[employer] PPO [id number] SP [id number] Results ID Date Data Source [id number] 01/05/2020 10:00:00 PM EDT [facility] Name Value Range Interpretation Description Data Sup porting Code Source(s) Document(s ) SARS [facility] coronavirus 2 RNA This lab was ordered by [facility] and reported by [facility]. Procedure
[2020-02-18 14:52] LABS: BASO % 0.4 % (0-2.0); EOS % 3.4 % (0-4.5); HEMATOCRIT 43.8 % (35.4-49); HEMOGLOBIN 14.8 GM/dL (11.7-16.9); LYMPH % 13.3 % (8-40); MCH 30.3 pg (25.7-33.7); MCHC 33.8 g/dl (32.0-35.9); MEAN CELL VOLUME 89.7 fl (80-96); MEAN PLT VOLUME 7.8 fl (7.5-11.1); MONO % 10.8 % (3.8-10.2); NEUT % 72.1 % (42.8-82.8); PLATELET COUNT 126 K/MM3 (134-434); RBC 4.89 M/mm3 (4.00-5.60); RDW 14.1 % (11.9-15.9); WHITE BLOOD COUNT 13.6 K/mm3 (4.0-10.0)
[2020-02-18 15:00] LABS: INR 1.09 (0.83-1.09); PROTHROMBIN TIME (PATIENT) 13.4 SEC (9.7-13.0)
[2020-02-18 15:02] LABS: ACTIVATED PTT 30.3 SECONDS (25.2-36.5)
[2020-02-18 15:20] LABS: ALBUMIN 3.4 g/dl (3.4-5.0); ALK PHOS 81 U/L (45-117); ANION GAP 7 MMOL/L (8-16); BILIRUBIN,TOTAL 1.3 mg/dL (0.2-1); BLOOD UREA NITROGEN 18.6 mg/dL (7-18); CALCIUM 8.8 mg/dL (8.5-10.1); CHLORIDE 106 mmol/L (98-107); CO2 25 mmol/L (21-32); CREATININE 1.5 mg/dL (0.55-1.3); GLUCOSE,RANDOM 89 mg/dL (74-106); PHOSPHOROUS 2.7 mg/dL (2.5-4.9); POTASSIUM 4.6 mmol/L (3.5-5.1); SGOT/AST 19 U/L (15-37); SGPT/ALT 33 U/L (13-61); SODIUM 138 mmol/L (136-145); TOT PROT 7.1 g/dl (6.4-8.2)
[2020-02-18 15:24] LABS: MAGNESIUM 2.4 mg/dL (1.8-2.4); N-TERMINAL BNP 374.3 pg/ml (5-125)
--- NOTE | 2020-02-18 17:03 | HP ---
CHIEF COMPLAINT: shortness of breath PCP: HISTORY OF PRESENT ILLNESS: Patient is a 64 year old male with history of hyperlipidemia, migraines, obesity, CKD presents with complaint of shortness of breath. He endorses symptoms ongoing for the past two days without clear inciting features. He noticed yesterday that he became suddenly short of breath after picking up his 40 pound grandson -usually he is able to ride bicycle and walk without any shortness of breath. Last evening patient endorses having to sleep sitting upright due to shotness of breath. Patient initially went to Urgent Care earlier today, however was noted that he desaturated to low 90s with light physical activity, prompting ED presentation. He does endorse diffuse myalgias. Denies sick contacts. Of note, patient had cardiac workup in January of this year with stress test which revealed EF low normal to 50%. 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 Independent in activities of daily living Smoking: Denies Alcohol: Denies Drugs: Denies Allergies morphine Adverse Reaction (Mild, Verified 02/18/20 13:28) agitation HOME MEDICATIONS: Home Medications Medication Instructions Recorded Ciclopirox Olamine [Ciclopirox] 30 gm TP BID 01/06/20 Lovastatin 40 mg PO DAILY 01/06/20 Nortriptyline HCl [Pamelor -] 50 mg PO HS 01/06/20 propRANOLol HCL [Propranolol HCl 120 mg PO HS 01/06/20 ER] REVIEW OF SYSTEMS CONSTITUTIONAL: Admits: malaise. Absent: fever, chills, diaphoresis, generalized weakness, loss of appetite, weight change HEENT: Absent: rhinorrhea, nasal congestion, throat pain, throat swelling, difficulty swallowing, mouth swelling, ear pain, eye pain, visual changes CARDIOVASCULAR: Absent: chest pain, syncope, palpitations, irregular heart rate, lightheadedness, peripheral edema RESPIRATORY: Admits: shortness of breath, dyspnea with exertion, orthopnea. Absent: cough, wheezing, stridor, hemoptysis GASTROINTESTINAL: Absent: abdominal pain, abdominal distension, nausea, vomiting, diarrhea, constipation, melena, hematochezia GENITOURINARY: Absent: dysuria, frequency, urgency, hesitancy, hematuria, flank pain, genital pain MUSCULOSKELETAL: Admits: diffuse myalgias. Absent: joint swelling, back pain, neck pain SKIN: Absent: rash, itching, pallor HEMATOLOGIC/IMMUNOLOGIC: Absent: easy bleeding, easy bruising, lymphadenopathy, frequent infections ENDOCRINE: Absent: unexplained weight gain, unexplained weight loss, heat intolerance, cold intolerance NEUROLOGIC: Absent: headache, focal weakness or paresthesias, dizziness, unsteady gait, seizure, mental status changes, bladder or bowel incontinence PSYCHIATRIC: Absent: anxiety, depression, suicidal or homicidal ideation, hallucinations. PHYSICAL EXAMINATION Vital Signs - 24 hr 02/18/20 13:29 Temperature 98.7 F Pulse Rate 88 Respiratory 22 H Rate Blood Pressure 138/76 O2 Sat by Pulse 96 Oximetry (%) GENERAL: The patient is awake, alert, and fully oriented, in no acute distress. HEAD: Normocephalic, atraumatic. EYES: PERRL, extraocular movements intact, sclera anicteric, conjunctiva clear. ENT: Oropharynx clear, without erythema or exudates. Moist mucous membranes. NECK: Trachea midline, full range of motion. Supple without lymphadenopathy. LUNGS: Breath sounds equal, clear to auscultation bilaterally. No wheezes, no crackles. No accessory muscle use. HEART: Regular rate and rhythm. S1, S2 without murmur, rub or gallop. ABDOMEN: Soft, nondistended, nontender to light and deep palpation x4 quadrants. No rebound tenderness, no guarding. Normoactive bowel sounds x4 quadrants. No hepatosplenomegaly, no masses appreciated. EXTREMITIES: 2+ radial, dorsalis pedis pulses bilaterally. Warm, well-perfused. No lower extremity edema bilaterally. NEUROLOGICAL: Cranial nerves II through XII grossly intact. Normal speech. No gross focal deficits. PSYCH: Normal mood, normal affect upon my encounter. SKIN: Warm, dry. Laboratory Results - last 24 hr 02/18/20 02/18/20 02/18/20 14:15 14:15 14:15 WBC 13.6 H RBC 4.89 Hgb 14.8 Hct 43.8 MCV 89.7 MCH 30.3 MCHC 33.8 RDW 14.1 Plt Count 126 L D MPV 7.8 Absolute Neuts (auto) 9.8 H Neutrophils % 72.1 D Lymphocytes % 13.3 D Monocytes % 10.8 H Eosinophils % 3.4 Basophils % 0.4 Nucleated RBC % 0 PT with INR INR PTT (Actin FS) Sodium 138 Potassium 4.6 Chloride 106 Carbon Dioxide 25 Anion Gap 7 L BUN 18.6 H Creatinine 1.5 H Est GFR (CKD-EPI)AfAm 56.61 Est GFR (CKD-EPI)NonAf 48.84 Random Glucose 89 Calcium 8.8 Phosphorus 2.7 Magnesium 2.4 Ferritin 262.4 Total Bilirubin 1.3 H AST 19 ALT 33 Alkaline Phosphatase 81 LD Total 316 H Creatine Kinase 61 Troponin I < 0.02 C-Reactive Protein 4.7 H B-Natriuretic Peptide 374.3 H Total Protein 7.1 Albumin 3.4 02/18/20 14:15 WBC RBC Hgb Hct MCV MCH MCHC RDW Plt Count MPV Absolute Neuts (auto) Neutrophils % Lymphocytes % Monocytes % Eosinophils % Basophils % Nucleated RBC % PT with INR 13.40 H INR 1.09 PTT (Actin FS) 30.3 Sodium Potassium Chloride Carbon Dioxide Anion Gap BUN Creatinine Est GFR (CKD-EPI)AfAm Est GFR (CKD-EPI)NonAf Random Glucose Calcium Phosphorus Magnesium Ferritin Total Bilirubin AST ALT Alkaline Phosphatase LD Total Creatine Kinase Troponin I C-Reactive Protein B-Natriuretic Peptide Total Protein Albumin ASSESSMENT/PLAN: Patient is a 64 year old male with history of hyperlipidemia, migraines, obesity, CKD presents with complaint of shortness of breath. Dyspnea on exertion -Cannot rule out cardiac etiology however patient had stress test one month ago with EF 52%. Transthoracic ECHO at that time did not reveal wall motion abnormalities. Currently not fluid overloaded, and saturating well on room air. Will not initiate diuretics at this juncture. -Suspect viral etiology given diffuse myalgias. -Influenza A,B, RSV,COVID 19 swab -Low likelyhood of PE. Will obtain D-Dimer, if greater than 1000 will obtain CTA chest -Follow blood, urine cultures -Monitoring off antibiotics for now, given patient is afebrile, and no clear source of infection despite WBC count. Low threshold to initiate broad spectrum antibiotics if patient becomes febrile -Cardiac telemetry monitoring -Sleep apnea screening History of hyperlipidemia -Continue home statin History of Migraines- Continue home Propranolol FEN -No IV fluids indicated -Follow BMP -Sodium modified diet -Prophylaxis -Heparin 500units subq TID Disposition -Admit to Telemetry floor Family Medical History Family History: As Documented Visit type - Emergency Visit Emergency Visit: Yes ED Registration Date: 02/18/20 Care time: The patient presented to the Emergency Department on the above date and was hospitalized for further evaluation of their emergent condition. - New Patient This patient is new to me today: Yes Date on this admission: 02/18/20 - Critical Care Critical Care patient: No ATTENDING PHYSICIAN STATEMENT I saw and evaluated the patient. I reviewed the resident's note and discussed the case with the resident. I agree with the resident's findings and plan as documented. SUBJECTIVE: OBJECTIVE: ASSESSMENT AND PLAN:
--- OUTSIDE RECORDS SUMMARY | 2020-02-18 17:18 | XMS ---
:1955 Author Organization [facility] Support Name Relationship Address Phone [employer] Unavailable [address] [place] [address] NAOMI GARCIA [address] [facility] [place] [address] NAOMI GARCIA Spouse [address] [facility] [facility] [place] [address] Re-disclosure Warning The records that you are [...] is protected by Article 27-F of the [facility] Public Health law. If you continue you may haveaccess to information: Regarding HIV / AIDS; Provided by facilities licensed or operated by the [facility] Office of Mental Health; or Provided by the [facility] Office for People With Developmental Disabilities. If such information is present, then the following [facility] mandated warning applies: This information has been [...] law may result in a fine or halfway sentence or both. A general authorization for the release of medical or other information is NOT sufficient authorization for further disclosure. Insurance Providers Payer name Policy type Policy ID Covered Covered alliance party's Policy P kinga / Coverage alliance party ID relationship to Jimenes Inf ormation type jimenes CIGNA [id number] SP [id number] HEALTHCARE PPO AETNA PPO [id number] SP [id number] Results ID Date Data Source [id number] 01/05/2020 10:00:00 PM EDT [facility] Name Value Range Interpretation Description Data Sup porting Code Source(s) Document(s ) SARS [facility] coronavirus 2 RNA This lab was ordered by [facility] and reported by [facility]. Procedure
--- NOTE | 2020-02-18 17:27 | PDOC ---
Documentation entered by Leni Gonzalez SCRIBE, acting as scribe for Rob Rivas MD. Rbo Rivas MD: This documentation has been prepared by the arianneeCarlos Ana, SCRIBE, under my direction and personally reviewed by me in its entirety. I confirm that the documentation accurately reflects all work, treatment, procedures, and medical decision making performed by me. Attending Attestation - Resident Resident Name: MarlenedomenicojoseRaghavendra - ED Attending Attestation I have performed the following: I have examined & evaluated the patient, The case was reviewed & discussed with the resident, I agree w/resident's findings & plan, Exceptions are as noted - HPI HPI: 02/18/20 14:10 Patient is a 64 year old male with a significant past medical history of migraines and hyperlipidemia, who presents to the ED with worsening dyspnea and orthopnea x2 days. Patient stated that he has to "prop himself up" in order to sleep and that his symptoms worsen when he lays flat. Patient was seen at an Urgent care earlier today for the same symptoms. Patient denies: weakness, fever, chills, confusion, cough, chest pain, palpitations, any lower extremity swelling, or any other related symptoms. Allergies: morphine - Physicial Exam PE: 02/18/20 14:11 See resident exam. - Medical Decision Making 64yo M presents to the ED with dyspnea and orthopnea Vitals with tachypnea DDx includes CHF vs ACS vs PNA No PE risk factors Plan -labs -CXR -anticipate admission for cardiac w/u Discharge - Discharge Information Problems reviewed: Yes Clinical Impression/Diagnosis: SOB (shortness of breath) on exertion Condition: Stable Disposition: HOME - Follow up/Referral - Patient Discharge Instructions - Post Discharge Activity
[2020-02-18] MEDS ORDERED: HEPARIN NA (PORCINE) 5,000 UNITS/ML 1ML VIAL SQ SCH (18:00)
[2020-02-18] MEDS ORDERED: HEPARIN NA (PORCINE) 5,000 UNITS/ML 1ML VIAL ONE (18:19)
[2020-02-18 18:35] LABS: URINE APPEARANCE CLEAR; URINE BILIRUBIN NEGATIVE (NEGATIVE); URINE COLOR YELLOW; URINE GLUCOSE (UA) NEGATIVE (NEGATIVE); URINE KETONE NEGATIVE (NEGATIVE); URINE LEUK ESTERASE NEGATIVE (NEGATIVE); URINE NITRITE NEGATIVE (NEGATIVE); URINE PROTEIN NEGATIVE (NEGATIVE); URINE UROBILINOGEN 0.2 mg/dL (0.2-1.0)
[2020-02-18] MEDS ORDERED: HEPARIN NA (PORCINE) 5,000 UNITS/ML 1ML VIAL IVPUSH PRN ×2 (19:55)
[2020-02-18] MEDS ORDERED: HEPARIN - 25,000 UNIT in SODIUM CHLORIDE 495 ML IV SCH (20:00)
[2020-02-18] MEDS ORDERED: ENOXAPARIN NA (PORCINE) 100 MG/1 ML DISP.SYRIN SQ ONE (20:16)
--- NOTE | 2020-02-18 20:16 | PN ---
Progress Note (short form) - Note Progress Note: Call received by day resident given pts d-dimer>17,000. Given pt's creatinine will not elect to obtain CTA with contrast at this time. Will obtain b/l duplexes of lower extremities and CT chest w/o contrast and empirically treat patient for PE with weight based and GFR based dosing of Lovenox. Spoke with pharmacist to confirm dosing. Nurse notified of these orders. Will follow up test results.
[2020-02-18] MEDS: ENOXAPARIN NA (PORCINE) 100 MG/1 ML DISP.SYRIN SQ SCH ×2 (20:40→21:46)
--- NOTE | 2020-02-18 21:55 | PN ---
Progress Note (short form) - Note Progress Note: Call received from Dr. Paul radiologist director of strategic communications. Imaging findings were discussed. Of note: patient was found to have a L Leg DVT and a small opacity in lower left lobe which is suspicious for a PE. Patient also had an incidental 1.3 cm nodule in the R lower lobe that was recommended for 3 week f/u for CT or PET scan. DVT like provoked from hypercoaguable state 2/2 malignancy. Outpatient f/u recommended for hypercoaguable workup since patient was already started on AC. Spoke with admitting attending Dr. Jha and he agrees with the following plan. A/P #DVT w/ PE - echo to r/o Right heart strain -continue with Lovenox 100 mg BID #Incidental R lobe nodule -director of strategic communications pulm Dr. Johnson was consulted; contacted and aware -outpt CT or PET f/u in 3 weeks
[2020-02-18] MEDS ORDERED: NORTRIPTYLINE HCL 10 MG CAPSULE PO SCH (22:00)
--- NOTE | 2020-02-18 22:46 | PN ---
Teaching Attending Note Name of Resident: Román Mcrae ATTENDING PHYSICIAN STATEMENT I saw and evaluated the patient. I reviewed the resident's note and discussed the case with the resident. I agree with the resident's findings and plan as documented. SUBJECTIVE: Patient seen and examined at bedside, endorses sudden episode of SOB after playing with his grandson 2-3 days ago, progressively getting worse. Hypoxic on exam. VSS. OBJECTIVE: GA comfortable, AAox3, speaking in full sentences HEENT NC/aT, wide neck circumference, dry MM, no JVD Chest Good air entry b/l, no crackles or wheezing CVS S1, S2+, RRR ABd obese, Soft, NT, BS+ Ext no LE edema, some LLE calf tenderness Vital Signs (72 hours) 02/18/20 02/18/20 02/18/20 13:29 17:43 19:26 Temperature 98.7 F 98.3 F Pulse Rate 88 Pulse Rate [ Apical] Pulse Rate [ 79 Left Radial] Respiratory 22 H 16 Rate Blood Pressure 138/76 Blood Pressure 125/68 [Left Arm] O2 Sat by Pulse 96 93 L 96 Oximetry (%) 02/18/20 22:40 Temperature Pulse Rate Pulse Rate [ 109 H Apical] Pulse Rate [ Left Radial] Respiratory 20 Rate Blood Pressure Blood Pressure 128/87 [Left Arm] O2 Sat by Pulse 100 Oximetry (%) Laboratory Results - last 24 hr 02/18/20 02/18/20 02/18/20 14:15 14:15 14:15 WBC 13.6 H RBC 4.89 Hgb 14.8 Hct 43.8 MCV 89.7 MCH 30.3 MCHC 33.8 RDW 14.1 Plt Count 126 L D MPV 7.8 Absolute Neuts (auto) 9.8 H Neutrophils % 72.1 D Lymphocytes % 13.3 D Monocytes % 10.8 H Eosinophils % 3.4 Basophils % 0.4 Nucleated RBC % 0 PT with INR INR PTT (Actin FS) D-Dimer Sodium 138 Potassium 4.6 Chloride 106 Carbon Dioxide 25 Anion Gap 7 L BUN 18.6 H Creatinine 1.5 H Est GFR (CKD-EPI)AfAm 56.61 Est GFR (CKD-EPI)NonAf 48.84 Random Glucose 89 Calcium 8.8 Phosphorus 2.7 Magnesium 2.4 Ferritin 262.4 Total Bilirubin 1.3 H AST 19 ALT 33 Alkaline Phosphatase 81 LD Total 316 H Creatine Kinase 61 Troponin I < 0.02 C-Reactive Protein 4.7 H B-Natriuretic Peptide 374.3 H Total Protein 7.1 Albumin 3.4 Urine Color Urine Appearance Urine pH Ur Specific [place] Urine Protein Urine Glucose (UA) Urine Ketones Urine Blood Urine Nitrite Urine Bilirubin Urine Urobilinogen Ur Leukocyte Esterase Influenza A (Rapid) Influenza B (Rapid) RSV Rapid 02/18/20 02/18/20 02/18/20 14:15 14:15 17:15 WBC RBC Hgb Hct MCV MCH MCHC RDW Plt Count MPV Absolute Neuts (auto) Neutrophils % Lymphocytes % Monocytes % Eosinophils % Basophils % Nucleated RBC % PT with INR 13.40 H INR 1.09 PTT (Actin FS) 30.3 D-Dimer 20774 H Sodium Potassium Chloride Carbon Dioxide Anion Gap BUN Creatinine Est GFR (CKD-EPI)AfAm Est GFR (CKD-EPI)NonAf Random Glucose Calcium Phosphorus Magnesium Ferritin Total Bilirubin AST ALT Alkaline Phosphatase LD Total Creatine Kinase Troponin I C-Reactive Protein B-Natriuretic Peptide Total Protein Albumin Urine Color Urine Appearance Urine pH Ur Specific [place] Urine Protein Urine Glucose (UA) Urine Ketones Urine Blood Urine Nitrite Urine Bilirubin Urine Urobilinogen Ur Leukocyte Esterase Influenza A (Rapid) Negative Influenza B (Rapid) Negative RSV Rapid 02/18/20 02/18/20 17:15 17:53 WBC RBC Hgb Hct MCV MCH MCHC RDW Plt Count MPV Absolute Neuts (auto) Neutrophils % Lymphocytes % Monocytes % Eosinophils % Basophils % Nucleated RBC % PT with INR INR PTT (Actin FS) D-Dimer Sodium Potassium Chloride Carbon Dioxide Anion Gap BUN Creatinine Est GFR (CKD-EPI)AfAm Est GFR (CKD-EPI)NonAf Random Glucose Calcium Phosphorus Magnesium Ferritin Total Bilirubin AST ALT Alkaline Phosphatase LD Total Creatine Kinase Troponin I C-Reactive Protein B-Natriuretic Peptide Total Protein Albumin Urine Color Yellow Urine Appearance Clear Urine pH 7.0 Ur Specific [place] 1.011 Urine Protein Negative Urine Glucose (UA) Negative Urine Ketones Negative Urine Blood Negative Urine Nitrite Negative Urine Bilirubin Negative Urine Urobilinogen 0.2 Ur Leukocyte Esterase Negative Influenza A (Rapid) Influenza B (Rapid) RSV Rapid Negative Home Medications Medication Instructions Recorded Ciclopirox Olamine [Ciclopirox] 30 gm TP BID 01/06/20 Lovastatin 40 mg PO DAILY 01/06/20 Nortriptyline HCl [Pamelor -] 50 mg PO HS 01/06/20 propRANOLol HCL [Propranolol HCl 120 mg PO HS 01/06/20 ER] Current Medications Generic Name Dose Route Start Last Admin Trade Name Matthew PRN Reason Stop Dose Admin Atorvastatin Calcium 10 mg 02/18/20 22:00 Lipitor - PO HS EM Enoxaparin Sodium 100 mg 02/18/20 22:00 02/18/20 21:46 Lovenox - SQ Not Given BID EM Nortriptyline HCl 50 mg 02/18/20 22:00 02/18/20 22:39 Pamelor - PO 50 mg HS EM Administration Propranolol HCl 120 mg 02/18/20 22:00 02/18/20 22:39 Inderal La - PO 120 mg HS EM Administration ASSESSMENT AND PLAN: 64 M Suspicious for PE R/o COVID pneumonitis Kidney donation in 1997 CKD HLD Migraine headaches Obesity r/o CANDIDO Plan: Would rather not subject patient to IV contrast (as patient has CKD and 1 kidney) for CTA of chest Obtain D-dimer, get LE doppler study, if either are positive start therapeutic Lovenox due to high suspicion for PE Obtain CT chest w/o contrast to r/o COVID Monitor O2 sat, supplement as needed Pulmonary evaluation Send inflammatory markers Follow COVID/RSV/FLU/strep/Legionella DVT ppx: Lovenox SC
[2020-02-18] MEDS ORDERED: ATORVASTATIN CA 10 MG TABLET (FP) ONE (22:49)
[2020-02-18] MEDS: ATORVASTATIN CA 10 MG TABLET (FP) PO SCH (22:52)
[2020-02-19 04:12] VITALS: BMI 30.7
[2020-02-19 07:30] LABS: HEMATOCRIT 43.3 % (35.4-49); HEMOGLOBIN 14.7 GM/dL (11.7-16.9); MCH 30.8 pg (25.7-33.7); MCHC 33.9 g/dl (32.0-35.9); MEAN CELL VOLUME 90.6 fl (80-96); PLATELET COUNT 104 K/MM3 (134-434); RBC 4.78 M/mm3 (4.00-5.60); RDW 14.1 % (11.9-15.9)
[2020-02-19 07:44] LABS: POTASSIUM 4.7 mmol/L (3.5-5.1)
[2020-02-19 07:48] LABS: ALBUMIN 3.2 g/dl (3.4-5.0); BLOOD UREA NITROGEN 17.7 mg/dL (7-18); CALCIUM 8.7 mg/dL (8.5-10.1); MAGNESIUM 2.3 mg/dL (1.8-2.4)
[2020-02-19 07:51] LABS: PHOSPHOROUS 2.5 mg/dL (2.5-4.9)
[2020-02-19 07:52] LABS: CREATININE 1.5 mg/dL (0.55-1.3)
[2020-02-19 07:53] LABS: BILIRUBIN,TOTAL 1.5 mg/dL (0.2-1); TOT PROT 6.9 g/dl (6.4-8.2)
--- NOTE | 2020-02-19 08:55 | PN ---
Physical Exam: SUBJECTIVE: Patient seen and examined OBJECTIVE: Vital Signs Period Temp Pulse Resp BP Sys/Alcaraz Pulse Ox Last 24 Hr 98.3 F-100.1 F 79-109 16-22 106-138/60-87 93-100 GENERAL: The patient is awake, alert, and fully oriented, in no acute distress. NECK: Trachea midline, full range of motion, supple. LUNGS: Breath sounds equal, lt lower lobe inspiratory rales noted, no wheezes, no crackles, no accessory muscle use. HEART: Regular rate and rhythm, S1, S2 without murmur, rub or gallop. ABDOMEN: Soft, nontender, nondistended, normoactive bowel sounds, no guarding, no rebound, no hepatosplenomegaly, no masses. EXTREMITIES: 2+ pulses, warm, well-perfused, no edema. SKIN: Warm, dry, normal turgor, no rashes or lesions noted Laboratory Results - last 24 hr 02/18/20 02/18/20 02/18/20 14:15 14:15 14:15 WBC 13.6 H RBC 4.89 Hgb 14.8 Hct 43.8 MCV 89.7 MCH 30.3 MCHC 33.8 RDW 14.1 Plt Count 126 L D MPV 7.8 Absolute Neuts (auto) 9.8 H Neutrophils % 72.1 D Lymphocytes % 13.3 D Monocytes % 10.8 H Eosinophils % 3.4 Basophils % 0.4 Nucleated RBC % 0 PT with INR INR PTT (Actin FS) D-Dimer Sodium 138 Potassium 4.6 Chloride 106 Carbon Dioxide 25 Anion Gap 7 L BUN 18.6 H Creatinine 1.5 H Est GFR (CKD-EPI)AfAm 56.61 Est GFR (CKD-EPI)NonAf 48.84 Random Glucose 89 Calcium 8.8 Phosphorus 2.7 Magnesium 2.4 Ferritin 262.4 Total Bilirubin 1.3 H AST 19 ALT 33 Alkaline Phosphatase 81 LD Total 316 H Creatine Kinase 61 Troponin I < 0.02 C-Reactive Protein 4.7 H B-Natriuretic Peptide 374.3 H Total Protein 7.1 Albumin 3.4 Urine Color Urine Appearance Urine pH Ur Specific [place] Urine Protein Urine Glucose (UA) Urine Ketones Urine Blood Urine Nitrite Urine Bilirubin Urine Urobilinogen Ur Leukocyte Esterase Influenza A (Rapid) Influenza B (Rapid) RSV Rapid 02/18/20 02/18/20 02/18/20 14:15 14:15 17:15 WBC RBC Hgb Hct MCV MCH MCHC RDW Plt Count MPV Absolute Neuts (auto) Neutrophils % Lymphocytes % Monocytes % Eosinophils % Basophils % Nucleated RBC % PT with INR 13.40 H INR 1.09 PTT (Actin FS) 30.3 D-Dimer 18045 H Sodium Potassium Chloride Carbon Dioxide Anion Gap BUN Creatinine Est GFR (CKD-EPI)AfAm Est GFR (CKD-EPI)NonAf Random Glucose Calcium Phosphorus Magnesium Ferritin Total Bilirubin AST ALT Alkaline Phosphatase LD Total Creatine Kinase Troponin I C-Reactive Protein B-Natriuretic Peptide Total Protein Albumin Urine Color Urine Appearance Urine pH Ur Specific [place] Urine Protein Urine Glucose (UA) Urine Ketones Urine Blood Urine Nitrite Urine Bilirubin Urine Urobilinogen Ur Leukocyte Esterase Influenza A (Rapid) Negative Influenza B (Rapid) Negative RSV Rapid 02/18/20 02/18/20 02/19/20 17:15 17:53 06:55 WBC 14.0 H RBC 4.78 Hgb 14.7 Hct 43.3 MCV 90.6 MCH 30.8 MCHC 33.9 RDW 14.1 Plt Count 104 L MPV 8.0 Absolute Neuts (auto) Neutrophils % Lymphocytes % Monocytes % Eosinophils % Basophils % Nucleated RBC % PT with INR INR PTT (Actin FS) D-Dimer Sodium Potassium Chloride Carbon Dioxide Anion Gap BUN Creatinine Est GFR (CKD-EPI)AfAm Est GFR (CKD-EPI)NonAf Random Glucose Calcium Phosphorus Magnesium Ferritin Total Bilirubin AST ALT Alkaline Phosphatase LD Total Creatine Kinase Troponin I C-Reactive Protein B-Natriuretic Peptide Total Protein Albumin Urine Color Yellow Urine Appearance Clear Urine pH 7.0 Ur Specific [place] 1.011 Urine Protein Negative Urine Glucose (UA) Negative Urine Ketones Negative Urine Blood Negative Urine Nitrite Negative Urine Bilirubin Negative Urine Urobilinogen 0.2 Ur Leukocyte Esterase Negative Influenza A (Rapid) Influenza B (Rapid) RSV Rapid Negative 02/19/20 06:55 WBC RBC Hgb Hct MCV MCH MCHC RDW Plt Count MPV Absolute Neuts (auto) Neutrophils % Lymphocytes % Monocytes % Eosinophils % Basophils % Nucleated RBC % PT with INR INR PTT (Actin FS) D-Dimer Sodium 139 Potassium 4.7 Chloride 106 Carbon Dioxide 28 Anion Gap 5 L BUN 17.7 Creatinine 1.5 H Est GFR (CKD-EPI)AfAm 56.61 Est GFR (CKD-EPI)NonAf 48.84 Random Glucose 111 H Calcium 8.7 Phosphorus 2.5 Magnesium 2.3 Ferritin Total Bilirubin 1.5 H AST 18 ALT 31 Alkaline Phosphatase 72 LD Total Creatine Kinase Troponin I C-Reactive Protein B-Natriuretic Peptide Total Protein 6.9 Albumin 3.2 L Urine Color Urine Appearance Urine pH Ur Specific [place] Urine Protein Urine Glucose (UA) Urine Ketones Urine Blood Urine Nitrite Urine Bilirubin Urine Urobilinogen Ur Leukocyte Esterase Influenza A (Rapid) Influenza B (Rapid) RSV Rapid Active Medications Generic Name Dose Route Start Last Admin Trade Name Matthew PRN Reason Stop Dose Admin Atorvastatin Calcium 10 mg 02/18/20 22:00 02/18/20 22:52 Lipitor - PO 10 mg HS [facility] Administration Enoxaparin Sodium 100 mg 02/18/20 22:00 02/18/20 21:46 Lovenox - SQ Not Given BID [facility] Influenza Virus Vaccine 60 mcg 02/19/20 10:00 Flulaval Quad Syr IM 02/19/20 10:01 .ONCE ONE Nortriptyline HCl 50 mg 02/19/20 22:00 Pamelor - PO HS EM Propranolol HCl 120 mg 02/18/20 22:00 02/18/20 22:39 Inderal La - PO 120 mg HS EM Administration ASSESSMENT/PLAN: 64 year old gentleman with history of hyperlipidemia, migraines, obesity, CKD( single kidney s/p donation) and recent sciatica presents with complaint of shortness of breath that started while lifting his grandson, he also endorses recent sciatica in 2019. # Dyspnea: -Acute DVT to rule out PE, to rule out ACS -chest pain on deep inspiration -CT chest noted. Pt reports that he's aware of lung nodule and that it was discovered over 20 years ago -lifetime non smoker, occassional EtOH, no IVDU -denies sick contact, no fever, chills, no loss of sense of smell or taste -COVID test pending -US doppler found new lt DVT. -on full dose Enoxaparin -DVT likely provoked (recent sciatica, decrease activity) -opted for V/Q scan to avoid contrast despite low risk, discussed with nephrology -V/Q scan showed low probability for PE -pending pulmonary consult -hemodynamically stable -WBC trended up, single episode of fever overnight noted -can't rule out ACS given his presentation -troponin negative, no typical chest pain, EKG showed LBBB which present on previous EKG -will repeat EKG and trop -cardiology consult HLD Obesity Migraine CKD sciatica DVT prophylaxis on full dose AC Visit type - Emergency Visit Emergency Visit: Yes ED Registration Date: 02/18/20 Care time: The patient presented to the Emergency Department on the above date and was hospitalized for further evaluation of their emergent condition. - New Patient This patient is new to me today: Yes Date on this admission: 02/19/20 - Critical Care Critical Care patient: No - Discharge Referral Referred to [facility] Med [facility] No
[2020-02-19] MEDS ORDERED: PATIENT'S OWN MEDICATION (NON-FORMULARY) (Lovastatin [Lovastatin] 40 MG) PO SCH (10:00)
[2020-02-19] MEDS ORDERED: FLU VACCINE (FLULAVAL) PF 60 MCG/0.5 ML SYRINGE 2020-2021 IM ONE (10:00)
[2020-02-19] MEDS: ENOXAPARIN NA (PORCINE) 100 MG/1 ML DISP.SYRIN SQ SCH ×2 (10:04→21:23)
--- NOTE | 2020-02-19 12:28 | CON.PULM ---
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 Doesn't know his baseline CR. H/o migraines reports two days of worsening dyspnea, orthopnea. 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 He reports that he has needed to prop himself up to sleep at night, and that his sob worsens while laying flat. He reports presenting to Urgent Care today for his worsening shortness of breath and dyspnea, and was found to have O2% to 96% on room air that dropped to 90% with ambulation. He denies any lower extremity swelling, fevers, chills, cough, weakness, confusion, chest pain, or palpitations. Patient has a positive lower duplex for dvt and has been started on Lovenox. He has been sedentary due to back pain from a sprain while trying to transplant a tree. 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 No: AFIB Pulmonary: No: COPD, Pulmonary Embolus Gastrointestinal: No: Ascites Hepatobiliary: No: Cirrhosis Renal/: No: Renal Failure Heme/Onc: No: Anemia Psych: No: Addictions Musculoskeletal: Yes: Chronic low back pain Rheumatology: No: Fibromyalgia Endocrine: No: Diabetes Mellitus - Past Surgical History Past Surgical History: Yes: Tonsillectomy - Alcohol/Substance Use Hx Alcohol Use: Yes (RARELY) History of Substance Use: reports: None - Smoking History Smoking history: Never smoked Have you smoked in the past 12 months: No Aproximately how many cigarettes per day: 0 - Social History ADL: Independent Place of : [facility] History of Recent Travel: No Home Medications - Allergies Allergies/Adverse Reactions: Allergies Allergy/AdvReac Type Severity Reaction Status Date / Time morphine AdvReac Mild Verified 02/18/20 13:28 - Home Medications Home Medications: Ambulatory Orders Lovastatin 40 mg PO DAILY 01/06/20 Nortriptyline HCl [Pamelor -] 50 mg PO HS 01/06/20 propRANOLol HCL [Propranolol HCl ER] 120 mg PO HS 01/06/20 Aspirin [Aspirin EC] 81 mg PO DAILY 10/17/20 Fish Oil 500 mg Softgel 1 tab PO DAILY 02/19/20 Multivit ([facility] Formul[facility]) 1 tab PO DAILY 02/19/20 Family Medical History Family Hx Cardiac Disorders: Brother (JOAO at age 59) Review of Systems - Review of Systems Constitutional: denies: Fever Eyes: denies: Blurred Vision HENT: denies: Difficult Swallowing Neck: denies: Decreased ROM Cardiovascular: denies: Chest Pain Respiratory: reports: Exercise Intolerance, SOB, SOB on Exertion. denies: Cough, Hemoptysis, Wheezing Gastrointestinal: denies: Abdominal Pain Genitourinary: denies: Burning Breasts: reports: No Symptoms Reported Musculoskeletal: reports: Back Pain Integumentary: reports: No Symptoms Neurological: reports: No Symptoms Endocrine: reports: No Symptoms Hematology/Lymphatic: reports: No Symptoms Psychiatric: reports: No Symptoms Physical Exam Vital Sings: Vital Signs Temperature 98.3 F 02/19/20 04:06 Pulse Rate 92 H 02/19/20 04:06 Respiratory Rate 20 02/19/20 04:06 Blood Pressure 119/66 02/19/20 04:06 O2 Sat by Pulse Oximetry (%) 98 02/19/20 04:13 Constitutional: Yes: Calm Eyes: Yes: EOM Intact HENT: Yes: Normocephalic Neck: Yes: Trachea Midline Cardiovascular: Yes: Regular Rate and Rhythm, S1, S2 Respiratory: Yes: CTA Bilaterally Gastrointestinal: Yes: Soft, Abdomen, Obese Extremities: No: Calf Tenderness Edema: No Neurological: Yes: Alert Labs: CBC, BMP 02/19/20 06:55 02/19/20 06:55 rest reviewed Imaging - Results Chest X-ray: Report Reviewed, Image Reviewed Cat Scan: Report Reviewed, Image Reviewed Ultrasound: Report Reviewed EKG: Report Reviewed Problem List - Problems (1) DVT (deep venous thrombosis) Code(s): I82.409 - ACUTE EMBOLISM AND THOMBOS UNSP DEEP VN UNSP LOWER EXTREMITY (2) Suspected pulmonary embolism Code(s): R09.89 - OTH SYMPTOMS AND SIGNS INVOLVING THE CIRC AND RESP SYSTEMS (3) SOB (shortness of breath) on exertion Code(s): R06.02 - SHORTNESS OF BREATH (4) Chest pain Code(s): R07.9 - CHEST PAIN, UNSPECIFIED (5) Acquired solitary kidney Code(s): Z90.5 - ACQUIRED ABSENCE OF KIDNEY Assessment/Plan ACUTE DVT LIKELY PROVOKED FROM SEDENTARY STATE DUE TO BACK STRAIN SOLITARY KIDNEY/CR 1.5 (LIKELY BASELINE) PRECLUDES CTA, WOULDN'T CHANGE TREATMENT DECISIONS CAN SWITCH TO DOAC AFTER LAST DOSE OF LOVENOX ADMINISTERED WOULD CONTINUE FOR 3 MONTH POST DISCHARGE Carlos A XIE MD
--- NOTE | 2020-02-19 15:34 | CON.CARD ---
Consult Consult Specialty:: Cardiology - History of Present Illness History of Present Illness: 64M w/hx HLD, migraines p/w two days of worsening dyspnea, orthopnea. He reports that two days ago he realized that he was increasingly short of breath with exertion while walking around the house. He reports dutifully remaining in quarantine and maintaining safe social distancing, except for occasionally ruth kiah his 4yo granddaughter. He reports that he has needed to prop himself up to sleep at night, and that his sob worsens while laying flat. He reports presenting to Urgent Care today for his worsening shortness of breath and dyspnea, and was found to have O2% to 96% on room air that dropped to 90% with ambulation. He denies any lower extremity swelling, fevers, chills, cough, weakness, confusion, chest pain, or palpitations. 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 No: AFIB Pulmonary: No: COPD, Pulmonary Embolus Gastrointestinal: No: Ascites Hepatobiliary: No: Cirrhosis Renal/: No: Renal Failure Psych: No: Addictions Musculoskeletal: Yes: Chronic low back pain Rheumatology: No: Fibromyalgia Endocrine: No: Diabetes Mellitus - Past Surgical History Past Surgical History: Yes: Tonsillectomy - Alcohol/Substance Use Hx Alcohol Use: Yes (RARELY) History of Substance Use: reports: None - Smoking History Smoking history: Never smoked Have you smoked in the past 12 months: No Aproximately how many cigarettes per day: 0 - Social History ADL: Independent History of Recent Travel: No Home Medications - Allergies Allergies/Adverse Reactions: Allergies Allergy/AdvReac Type Severity Reaction Status Date / Time morphine AdvReac Mild Verified 02/18/20 13:28 - Home Medications Home Medications: Ambulatory Orders Lovastatin 40 mg PO DAILY 01/06/20 Nortriptyline HCl [Pamelor -] 50 mg PO HS 01/06/20 propRANOLol HCL [Propranolol HCl ER] 120 mg PO HS 01/06/20 Aspirin [Aspirin EC] 81 mg PO DAILY 02/19/20 Fish Oil 500 mg Softgel 1 tab PO DAILY 02/19/20 Multivit ([facility] Formulary) 1 tab PO DAILY 02/19/20 Family Medical History Family Hx Cardiac Disorders: Brother ([place] at age 59) Review of Systems - Review of Systems Constitutional: reports: No Symptoms Eyes: reports: No Symptoms HENT: reports: No Symptoms Neck: reports: No Symptoms Cardiovascular: reports: Shortness of Breath Respiratory: reports: SOB, SOB on Exertion Gastrointestinal: reports: No Symptoms Genitourinary: reports: No Symptoms Breasts: reports: No Symptoms Reported Musculoskeletal: reports: No Symptoms Integumentary: reports: No Symptoms Neurological: reports: No Symptoms Endocrine: reports: No Symptoms Hematology/Lymphatic: reports: No Symptoms Psychiatric: reports: No Symptoms Vital Signs: Vital Signs Temperature 97.5 F L 02/19/20 10:00 Pulse Rate 82 02/19/20 10:00 Respiratory Rate 18 02/19/20 10:00 Blood Pressure 119/77 02/19/20 10:00 O2 Sat by Pulse Oximetry (%) 97 02/19/20 10:00 Constitutional: Yes: Well Nourished, No Distress, Calm Eyes: Yes: WNL, Conjunctiva Clear, EOM Intact HENT: Yes: WNL, Atraumatic, Normocephalic Neck: Yes: WNL, Supple, Trachea Midline Respiratory: Yes: WNL, Regular, CTA Bilaterally Gastrointestinal: Yes: WNL, Normal Bowel Sounds Renal/: Yes: WNL Cardiovascular: Yes: WNL, Regular Rate and Rhythm Musculoskeletal: Yes: WNL Extremities: Yes: WNL Integumentary: Yes: WNL Neurological: Yes: WNL, Alert, Oriented ...Motor Strength: WNL Psychiatric: Yes: WNL, Alert, Oriented - Other Data Labs, Other Data: CBC, BMP 02/19/20 06:55 02/19/20 06:55 INR, PTT INR 1.09 (0.83-1.09) 02/18/20 14:15 Imaging - Results Chest X-ray: Image Reviewed (no i/e) EKG: Image Reviewed (sr lbbb) Problem List - Problems (1) Acquired solitary kidney Code(s): Z90.5 - ACQUIRED ABSENCE OF KIDNEY (2) DVT (deep venous thrombosis) Code(s): I82.409 - ACUTE EMBOLISM AND THOMBOS UNSP DEEP VN UNSP LOWER EXTREMITY (3) SOB (shortness of breath) on exertion Code(s): R06.02 - SHORTNESS OF BREATH (4) Suspected pulmonary embolism Code(s): R09.89 - OTH SYMPTOMS AND SIGNS INVOLVING THE CIRC AND RESP SYSTEMS (5) Chest pain Code(s): R07.9 - CHEST PAIN, UNSPECIFIED Assessment/Plan Imp; Acute DVT LBBB CHF decompensated [facility] kidney 2/2 donation CHF Neg [facility]IBI [facility] 2019 V/Q scan negative for PE ECHO nl ef in Jan 2020 - BNP nl at that time, Cr. unchanged at 1.5 Plan; AC Lovenox than DOAC Telemetry serial EKGs and TNIs Low dose of PO Lasix - monitor BUN/Cr ECHO
[2020-02-19] MEDS: FUROSEMIDE 20 MG TABLET (FP) PO SCH (16:11)
--- NOTE | 2020-02-19 16:43 | CON.NEP ---
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 No: AFIB Pulmonary: No: COPD, Pulmonary Embolus Gastrointestinal: No: Ascites Hepatobiliary: No: Cirrhosis Renal/: No: Renal Failure Psych: No: Addictions Musculoskeletal: Yes: Chronic low back pain Rheumatology: No: Fibromyalgia Endocrine: No: Diabetes Mellitus - Past Surgical History Past Surgical History: Yes: Tonsillectomy - Alcohol/Substance Use Hx Alcohol Use: Yes (RARELY) History of Substance Use: reports: None - Smoking History Smoking history: Never smoked Have you smoked in the past 12 months: No Aproximately how many cigarettes per day: 0 - Social History ADL: Independent History of Recent Travel: No Home Medications - Allergies Allergies/Adverse Reactions: Allergies Allergy/AdvReac Type Severity Reaction Status Date / Time morphine AdvReac Mild Verified 02/18/20 13:28 - Home Medications Home Medications: Ambulatory Orders Lovastatin 40 mg PO DAILY 01/06/20 Nortriptyline HCl [Pamelor -] 50 mg PO HS 01/06/20 propRANOLol HCL [Propranolol HCl ER] 120 mg PO HS 01/06/20 Aspirin [Aspirin EC] 81 mg PO DAILY 02/19/20 Fish Oil 500 mg Softgel 1 tab PO DAILY 02/19/20 Multivit ([facility] Formul[facility]) 1 tab PO DAILY 02/19/20 Family Medical History Family Hx Cardiac Disorders: Brother ([place] at age 59) Nephrology Consult - Height Height: 6 ft 2 in - Weight Weight: 239 lb - BMI Body Mass Index (BMI): 30.7 - Lab Results CBC,BMP: CBC, BMP 02/19/20 06:55 02/19/20 06:55 Anion Gap: Anion Gap Anion Gap 5 MMOL/L (8-16) L 02/19/20 06:55 - Physical Examination Vital Signs: Vital Signs Temperature 97.5 F L 02/19/20 10:00 Pulse Rate 82 02/19/20 10:00 Respiratory Rate 18 02/19/20 10:00 Blood Pressure 119/77 02/19/20 10:00 O2 Sat by Pulse Oximetry (%) 97 02/19/20 10:00 Assessment/Plan ckd acute dvt and r/o pe seen by pulm- no cta needed
--- NOTE | 2020-02-19 18:41 | EKG ---
Test Reason : Blood Pressure : / mmHG Vent. Rate : 086 BPM Atrial Rate : 086 BPM P-R Int : 228 ms QRS Dur : 144 ms QT Int : 390 ms P-R-T Axes : 058 013 086 degrees QTc Int : 466 ms SINUS RHYTHM WITH 1ST DEGREE A-V BLOCK LEFT BUNDLE BRANCH BLOCK ABNORMAL ECG WHEN COMPARED WITH ECG OF 06-JAN-2020 00:55, T WAVE INVERSION NO LONGER EVIDENT IN LATERAL LEADS Confirmed by MD YOHAN, SINGH ([id number]) on 02/19/2020 6:40:56 PM Referred By: Confirmed By:SINGH ALMANZAR MD
[2020-02-19] MEDS ORDERED: PT OWN MED DRAWER 7, Y5N ONE (20:26)
[2020-02-19] MEDS: ATORVASTATIN CA 10 MG TABLET (FP) PO SCH (21:22)
[2020-02-19] MEDS: NORTRIPTYLINE HCL 25 MG CAPSULE PO SCH (21:22)
[2020-02-19] MEDS ORDERED: ACETAMINOPHEN 325 MG TABLET (FP) PO ONE (21:43)
[2020-02-20] MEDS ORDERED: ACETAMINOPHEN 325 MG TABLET (FP) PO ONE (06:23)
[2020-02-20 07:19] LABS: HEMATOCRIT 42.5 % (35.4-49); HEMOGLOBIN 14.4 GM/dL (11.7-16.9); MCH 31.1 pg (25.7-33.7); MEAN CELL VOLUME 91.4 fl (80-96); MEAN PLT VOLUME 8.1 fl (7.5-11.1); PLATELET COUNT 98 K/MM3 (134-434); RBC 4.65 M/mm3 (4.00-5.60); RDW 14.1 % (11.9-15.9)
[2020-02-20] MEDS ORDERED: DEXTROSE 5%-WATER - 50 ML IVPB ONE (08:53)
[2020-02-20] MEDS ORDERED: cefTRIAXone SODIUM 1 GM VIAL ONE (08:53)
[2020-02-20] MEDS: FUROSEMIDE 20 MG TABLET (FP) PO SCH (09:07)
[2020-02-20] MEDS: ENOXAPARIN NA (PORCINE) 100 MG/1 ML DISP.SYRIN SQ SCH ×2 (09:07→22:16)
[2020-02-20] MEDS: CEFTRIAXONE 1 GM in DEXTROSE 5%-WATER - 50 ML IVPB SCH (09:08)
[2020-02-20] MEDS: AZITHROMYCIN 250 MG TABLET PO SCH (09:08)
--- NOTE | 2020-02-20 10:06 | PN ---
Teaching Attending Note Name of Resident: Karina Leary ATTENDING PHYSICIAN STATEMENT I saw and evaluated the patient. I reviewed the resident's note and discussed the case with the resident. I agree with the resident's findings and plan as documented. SUBJECTIVE: pt seen and examined OBJECTIVE: Last Vital Signs Temp Pulse Resp BP Pulse Ox 98 F 81 17 119/54 L 94 L 02/20/20 09:24 02/20/20 09:24 02/20/20 09:24 02/20/20 09:24 02/20/20 09:25 GENERAL: The patient is awake, alert, and fully oriented, in no acute distress. NECK: Trachea midline, full range of motion, supple. LUNGS: Breath sounds equal, lt lower lobe inspiratory rales noted, no wheezes, no crackles, no accessory muscle use. HEART: Regular rate and rhythm, S1, S2 without murmur, rub or gallop. ABDOMEN: Soft, nontender, nondistended, normoactive bowel sounds, no guarding, no rebound, no hepatosplenomegaly, no masses. EXTREMITIES: 2+ pulses, warm, well-perfused, no edema. SKIN: Warm, dry, normal turgor, no rashes or lesions noted Lab reviewed ASSESSMENT AND PLAN: 64 year old gentleman with history of hyperlipidemia, migraines, obesity, CKD( single kidney s/p donation) and recent sciatica presents with complaint of shortness of breath that started while lifting his grandson, he also endorses recent sciatica in 2019. # Dyspnea with lt sided chest pain on deep inspiration/sneezing: - still getting dyspneic on exertion, trivial relief with diuretics -Acute DVT to rule out PE, to rule out ACS -chest pain on deep inspiration -no fever, chills, afebrile non tachy, no cough -COVID test negative -V/Q scan showed low probability for PE -WBC did not trend down, will start Abx. Pneumonia?pleurisy? -EKG no changes, trop negative -reports last stress test negative in january -pulmonary consult appreciated -cardiology consult appreciated # Lt DVT, provoked -US doppler found new lt DVT. -on full dose Enoxaparin -monitor platelets, may switch to PO in AM -hemodynamically stable lung nodule (reported to be stable, will need f/u CT, lifetime non smoker) HLD Obesity Migraine CKD sciatica DVT prophylaxis on full dose AC
[2020-02-20] MEDS ORDERED: FLU VACCINE (FLULAVAL) PF 60 MCG/0.5 ML SYRINGE 2020-2021 IM ONE (11:00)
--- NOTE | 2020-02-20 12:15 | PN ---
Progress Note (short form) - Note Progress Note: PULMONARY APPEARS FATIGUED VSS/AFEBRILE 94%SPO2 ON R/A PALE/ANICTERIC DIMINISHED BREATH SOUNDS S1S2 OBESE NO EDEMA LABS/MEDS/NOTES/IMAGES REVIEWED V/Q LOW PROB PE PATCHY B/L PERFUSION/VENTILATION UPTAKE(DENOTES UNDERLYING LUNG DISEASE) HOWEVER,CT CHEST DOESN'T SUPPORT. CONTINUE A/C FOR DVT CAN TRANSITION TO DOAC ANTIBIOTICS BEGUN BY PRIMARY R ANNE-MARIE BISHOP Problem List - Problems (1) DVT (deep venous thrombosis) Code(s): I82.409 - ACUTE EMBOLISM AND THOMBOS UNSP DEEP VN UNSP LOWER EXTREMITY (2) Suspected pulmonary embolism Code(s): R09.89 - OTH SYMPTOMS AND SIGNS INVOLVING THE CIRC AND RESP SYSTEMS (3) SOB (shortness of breath) on exertion Code(s): R06.02 - SHORTNESS OF BREATH (4) Chest pain Code(s): R07.9 - CHEST PAIN, UNSPECIFIED (5) Acquired solitary kidney Code(s): Z90.5 - ACQUIRED ABSENCE OF KIDNEY
--- NOTE | 2020-02-20 14:42 | EKG ---
Test Reason : Blood Pressure : / mmHG Vent. Rate : 077 BPM Atrial Rate : 077 BPM P-R Int : 236 ms QRS Dur : 112 ms QT Int : 402 ms P-R-T Axes : 052 014 045 degrees QTc Int : 454 ms SINUS RHYTHM WITH 1ST DEGREE A-V BLOCK OTHERWISE NORMAL ECG WHEN COMPARED WITH ECG OF 19-FEB-2020 16:52, LEFT BUNDLE BRANCH BLOCK IS NO LONGER PRESENT Confirmed by MD YOHAN, SINGH ([id number]) on 02/20/2020 2:41:51 PM Referred By: TOM KRAMER Confirmed By:SINGH ALMANZAR MD
--- NOTE | 2020-02-20 14:45 | EKG ---
Test Reason : Blood Pressure : / mmHG Vent. Rate : 086 BPM Atrial Rate : 086 BPM P-R Int : 230 ms QRS Dur : 148 ms QT Int : 392 ms P-R-T Axes : 048 002 040 degrees QTc Int : 469 ms SINUS RHYTHM WITH 1ST DEGREE A-V BLOCK LEFT BUNDLE BRANCH BLOCK ABNORMAL ECG WHEN COMPARED WITH ECG OF 18-FEB-2020 13:51, NO SIGNIFICANT CHANGE WAS FOUND Confirmed by MD YOHAN, SINGH ([id number]) on 02/20/2020 2:44:27 PM Referred By: Confirmed By:SINGH ALMANZAR MD
--- NOTE | 2020-02-20 15:34 | PN ---
Physical Exam: SUBJECTIVE: Patient seen and examined. OBJECTIVE: Vital Signs Period Temp Pulse Resp BP Sys/Alcaraz Pulse Ox Last 24 Hr 98 F-99.3 F 68-91 17-20 110-129/48-71 92-99 GENERAL: The patient is awake, alert, and fully oriented, in no acute distress. NECK: Trachea midline, full range of motion, supple. LUNGS: Breath sounds equal, lt lower lobe inspiratory rales noted, no wheezes, no crackles, no accessory muscle use. HEART: Regular rate and rhythm, S1, S2 without murmur, rub or gallop. ABDOMEN: Soft, nontender, nondistended, normoactive bowel sounds, no guarding, no rebound, no hepatosplenomegaly, no masses. EXTREMITIES: 2+ pulses, warm, well-perfused, no edema. SKIN: Warm, dry, normal turgor, no rashes or lesions noted Laboratory Results - last 24 hr 02/20/20 02/20/20 02/20/20 05:30 05:30 05:30 WBC 14.0 H RBC 4.65 Hgb 14.4 Hct 42.5 MCV 91.4 MCH 31.1 MCHC 34.0 RDW 14.1 Plt Count 98 L MPV 8.1 PTT (Actin FS) 38.9 H Troponin I < 0.02 Active Medications Generic Name Dose Route Start Last Admin Trade Name Freq PRN Reason Stop Dose Admin Atorvastatin Calcium 10 mg 02/18/20 22:00 02/19/20 21:22 Lipitor - PO 10 mg HS EM Administration Azithromycin 500 mg 02/20/20 10:00 02/20/20 09:08 Zithromax - PO 500 mg DAILY EM Administration Enoxaparin Sodium 100 mg 02/18/20 22:00 02/20/20 09:07 Lovenox - SQ 100 mg BID EM Administration Furosemide 20 mg 02/19/20 15:45 02/20/20 09:07 Lasix - PO 20 mg DAILY EM Administration Ceftriaxone Sodium 1 gm/ 50 mls @ 100 mls/hr 02/20/20 10:00 02/20/20 09:08 Dextrose IVPB 100 mls/hr DAILY EM Administration Nortriptyline HCl 50 mg 02/19/20 22:00 02/19/20 21:22 Pamelor - PO 50 mg HS EM Administration Propranolol HCl 120 mg 02/18/20 22:00 02/19/20 21:22 Inderal La - PO 120 mg HS EM Administration ASSESSMENT/PLAN: Pt is a 64 yo M with PMHx of HLD, migraines, obesity, CKD (single kidney s/p donation) recent sciatica presents with complaint of shortness of breath that started while lifting his grandson, admitted for dyspnea and DVT. #Dyspnea with L sided chest pain on deep inspiration/sneezing -still present, pleuritic chest pain -CP on deep inspiration -no fever, chills, afebrile, normal rate, no cough -COVID negative -V/Q scan -- low probability PE -started on Rocephin and Azithro, leukocytosis present; possibly pneumonia? -EKG unremarkable, trops negative x2 -pulm and cardio consults appreciated #L DVT, provoked -Doppler U/S showing L DVT -on 100mg BID Lovenox, therapeutic dose -switch to PO Eliquis in AM, per pulm continue PO for 3 months -hemodynamically stable #Lung nodule -reported to be stable, will need f/u CT/comparison to old images with PCP -f/u outpatient #Hx HLD -continue lipitor #Obesity -counseled on weight loss, exercise, and eating habits #Migraines -on sumatriptan at home, held currently #CKD -VQ scan done instead of CTA due to CKD FEN Monitor lytes Chol/fat/sodium restricted diet No standing fluids PPx Lovenox 100mg BID for DVT Dispo Monitor on tele. Visit type - Emergency Visit Emergency Visit: Yes ED Registration Date: 02/18/20 Care time: The patient presented to the Emergency Department on the above date and was hospitalized for further evaluation of their emergent condition. - New Patient This patient is new to me today: No - Critical Care Critical Care patient: No ATTENDING PHYSICIAN STATEMENT I saw and evaluated the patient. I reviewed the resident's note and discussed the case with the resident. I agree with the resident's findings and plan as documented. SUBJECTIVE: OBJECTIVE: ASSESSMENT AND PLAN:
--- NOTE | 2020-02-20 15:50 | PN ---
Progress Note, Physician History of Present Illness: 64M w/hx HLD, migraines p/w two days of worsening dyspnea, orthopnea. He reports that two days ago he realized that he was increasingly short of breath with exertion while walking around the house. He reports dutifully remaining in quarantine and maintaining safe social distancing, except for occasionally watching his 4yo granddaughter. He reports that he has needed to prop himself up to sleep at night, and that his sob worsens while laying flat. He reports presenting to Urgent Care today for his worsening shortness of breath and dyspnea, and was found to have O2% to 96% on room air that dropped to 90% with ambulation. He denies any lower extremity swelling, fevers, chills, cough, we akness, confusion, chest pain, or palpitations. - Current Medication List Current Medications: Active Medications Atorvastatin Calcium (Lipitor -) 10 mg PO [facility] Last Admin: 02/19/20 21:22 Dose: 10 mg Documented by: Azithromycin (Zithromax -) [address] [facility] Last Admin: 02/20/20 09:08 Dose: 500 mg Documented by: Enoxaparin Sodium (Lovenox -) [address] [facility] Last Admin: 02/20/20 09:07 Dose: 100 mg Documented by: Furosemide (Lasix -) [address] [facility] Last Admin: 02/20/20 09:07 Dose: 20 mg Documented by: Ceftriaxone Sodium 1 gm/ (Dextrose) 50 mls @ 100 mls/hr IVPB DAILY [facility] Last Admin: 02/20/20 09:08 Dose: 100 mls/hr Documented by: Nortriptyline HCl (Pamelor -) 50 mg PO [facility] Last Admin: 02/19/20 21:22 Dose: 50 mg Documented by: Propranolol HCl (Inderal La -) 120 mg PO [facility] Last Admin: 02/19/20 21:22 Dose: 120 mg Documented by: - Objective Vital Signs: Vital Signs Temperature 98.1 F 02/20/20 14:00 Pulse Rate 68 02/20/20 14:00 Respiratory Rate 18 02/20/20 14:00 Blood Pressure 129/71 02/20/20 14:00 O2 Sat by Pulse Oximetry (%) 98 02/20/20 14:00 Eyes: Yes: WNL, Conjunctiva Clear, EOM Intact HENT: Yes: WNL, Atraumatic, Normocephalic Neck: Yes: WNL, Supple, Trachea Midline Cardiovascular: Yes: WNL, Regular Rate and Rhythm Respiratory: Yes: WNL, Regular, CTA Bilaterally Gastrointestinal: Yes: WNL, Normal Bowel Sounds Genitourinary: Yes: WNL Musculoskeletal: Yes: WNL Extremities: Yes: WNL Edema: No Integumentary: Yes: WNL Neurological: Yes: WNL, Alert, Oriented ...Motor Strength: WNL Psychiatric: Yes: WNL Labs: CBC, BMP 02/20/20 05:30 02/19/20 06:55 INR, PTT INR 1.09 (0.83-1.09) 02/18/20 14:15 Problem List - Problems (1) Acquired solitary kidney Code(s): Z90.5 - ACQUIRED ABSENCE OF KIDNEY (2) DVT (deep venous thrombosis) Code(s): I82.409 - ACUTE EMBOLISM AND THOMBOS UNSP DEEP VN UNSP LOWER EXTREMITY (3) SOB (shortness of breath) on exertion Code(s): R06.02 - SHORTNESS OF BREATH (4) Suspected pulmonary embolism Code(s): R09.89 - OTH SYMPTOMS AND SIGNS INVOLVING THE CIRC AND RESP SYSTEMS (5) Chest pain Code(s): R07.9 - CHEST PAIN, UNSPECIFIED Assessment/Plan Imp; Acute DVT LBBB CHF decompensated [facility] kidney 2/2 donation CHF Neg [facility] 2019 V/Q scan negative for PE ECHO nl ef in Jan 2020 - BNP nl at that time, Cr. unchanged at 1.5 Plan; AC Lovenox than DOAC Telemetry serial EKGs and TNIs Low dose of PO Lasix - monitor BUN/Cr ECHO
[2020-02-20] MEDS: ACETAMINOPHEN 325 MG TABLET (FP) PO PRN (18:41)
--- NOTE | 2020-02-20 21:34 | PN ---
Progress Note (short form) - Note Progress Note: ckd solitary kidney 2/2 donation acute dvt and r/o pe seen by pulm- no cta needed Active Medications Acetaminophen (Tylenol -) 650 mg PO Q6H PRN PRN Reason: PAIN LEVEL 1-5 Last Admin: 02/20/20 18:41 Dose: 650 mg Documented by: Atorvastatin Calcium (Lipitor -) 10 mg PO HS [facility] Last Admin: 02/19/20 21:22 Dose: 10 mg Documented by: Azithromycin (Zithromax -) 500 mg PO DAILY [facility] Last Admin: 02/20/20 09:08 Dose: 500 mg Documented by: Enoxaparin Sodium (Lovenox -) 100 mg SQ BID [facility] Last Admin: 02/20/20 09:07 Dose: 100 mg Documented by: Furosemide (Lasix -) 20 mg PO DAILY [facility] Last Admin: 02/20/20 09:07 Dose: 20 mg Documented by: Ceftriaxone Sodium 1 gm/ (Dextrose) 50 mls @ 100 mls/hr IVPB DAILY [facility] Last Admin: 02/20/20 09:08 Dose: 100 mls/hr Documented by: Nortriptyline HCl (Pamelor -) 50 mg PO HS [facility] Last Admin: 02/19/20 21:22 Dose: 50 mg Documented by: Propranolol HCl (Inderal La -) 120 mg PO HS [facility] Last Admin: 02/19/20 21:22 Dose: 120 mg Documented by: Last Vital Signs Temp Pulse Resp BP Pulse Ox 98.7 F 84 18 122/66 98 02/20/20 18:00 02/20/20 18:00 02/20/20 18:00 02/20/20 18:00 02/20/20 18:00 CBC, BMP 02/20/20 05:30 02/19/20 06:55 ckd solitary kidney 2/2 donation renal function stable acute dvt and r/o pe seen by pulm- no cta needed Plan- continue to monitor renal function
[2020-02-20] MEDS ORDERED: PT OWN MED DRAWER 7, Y5N ONE (22:14)
[2020-02-20] MEDS: NORTRIPTYLINE HCL 25 MG CAPSULE PO SCH (22:16)
[2020-02-20] MEDS: ATORVASTATIN CA 10 MG TABLET (FP) PO SCH (22:17)
[2020-02-21] MEDS: ACETAMINOPHEN 325 MG TABLET (FP) PO PRN ×2 (03:22→21:10)
[2020-02-21 08:06] LABS: BASO % 0.5 % (0-2.0); EOS % 4.1 % (0-4.5); HEMATOCRIT 41.2 % (35.4-49); LYMPH % 17.6 % (8-40); MEAN PLT VOLUME 8.2 fl (7.5-11.1); NEUT % 69.8 % (42.8-82.8); PLATELET COUNT 101 K/MM3 (134-434); RBC 4.52 M/mm3 (4.00-5.60); RDW 14.1 % (11.9-15.9); WHITE BLOOD COUNT 11.8 K/mm3 (4.0-10.0)
[2020-02-21 08:21] LABS: CHLORIDE 106 mmol/L (98-107); POTASSIUM 4.2 mmol/L (3.5-5.1); SODIUM 138 mmol/L (136-145)
[2020-02-21 08:24] LABS: ANION GAP 7 MMOL/L (8-16); CALCIUM 8.6 mg/dL (8.5-10.1); CO2 26 mmol/L (21-32); GLUCOSE,RANDOM 97 mg/dL (74-106); MAGNESIUM 2.4 mg/dL (1.8-2.4)
[2020-02-21 08:28] LABS: CREATININE 1.2 mg/dL (0.55-1.3); PHOSPHOROUS 2.4 mg/dL (2.5-4.9)
[2020-02-21] MEDS ORDERED: cefTRIAXone SODIUM 1 GM VIAL ONE (10:45)
[2020-02-21] MEDS ORDERED: DEXTROSE 5%-WATER - 50 ML IVPB ONE (10:45)
[2020-02-21] MEDS: AZITHROMYCIN 250 MG TABLET PO SCH (10:51)
[2020-02-21] MEDS: APIXABAN 5 MG TABLET PO SCH ×2 (10:51→21:10)
[2020-02-21] MEDS: CEFTRIAXONE 1 GM in DEXTROSE 5%-WATER - 50 ML IVPB SCH (10:51)
--- NOTE | 2020-02-21 11:34 | ECHO ---
Name: ANN-MARIE GARCIA Exam:Adult Echocardiogram Study Date: 02/21/2020 09:25 AM Age: 64 yrs Reason For Study: dvt w/PE r/o r heart Strain Height: 74 in Weight: 240 lb BSA: 2.3 m2 MMode/2D Measurements & Calculations IVSd: 1.2 cm Ao root diam: 3.3 cm LVIDd: 3.1 cm LA dimension: 3.1 cm LVIDs: 2.3 cm ACS: 2.0 cm LVPWd: 1.1 cm LVPWs: 1.9 cm EDV(Teich): 36.9 ml ESV(Brittny): 17.5 ml LVOT diam: 2.1 cm RV S Erick: 9.2 cm/sec Doppler Measurements & Calculations MV E max erick: 42.0 cm/sec Ao V2 max: 89.0 cm/sec MV A max erick: 67.6 cm/sec Ao max P.2 mmHg MV E/A: 0.62 MV dec time: 0.17 sec AJITH(V,D): 2.9 cm2 LV V1 max P.1 mmHg PA V2 max: 53.9 cm/sec LV V1 max: 72.6 cm/sec PA max P.6 mmHg Med Peak E' Erick: 4.6 cm/sec Med E/e': 9.2 Lat Peak E' Erick: 5.1 cm/sec Lat E/e': 8.3 Procedure A complete two-dimensional transthoracic echocardiogram was performed (2D, M-mode, Doppler and color flow Doppler). Technically limited study. Left Ventricle The left ventricle is normal in size. There is mild concentric left ventricular hypertrophy. Left oj tricular systolic function is mildly reduced. Ejection Fraction = 45-50%. Grade I diastolic dysfunction, (abno rmal relaxation pattern). Ratio E/E'= 9. There is mild global hypokinesis of the left ventricle. Right Ventricle The right ventricle is not well visualized. There appears to be no RV strain. RV systolic function ap pears to be preserved. Atria The left atrial size is normal. Right atrial size is normal. Mitral Valve The mitral valve is normal in structure and function. There is no mitral regurgitation noted. Tricuspid Valve The tricuspid valve is not well visualized. Aortic Valve There is mild aortic sclerosis.;. No aortic regurgitation is present. Pulmonic Valve The pulmonic valve is not well visualized. Great Vessels The aortic root is normal size. Pericardium/Pleura There is no pericardial effusion. Interpretation Summary Technically limited study The left ventricle is normal in size. There is mild concentric left ventricular hypertrophy. Left ventricular systolic function is mildly reduced. There is mild global hypokinesis of the left ventricle. Ejection Fraction = 45-50%. Grade I diastolic dysfunction, (abnormal relaxation pattern). Ratio E/E'= 9 The right ventricle is not well visualized. There appears to be no RV strain. RV systolic function appears to be preserved. The left atrial size is normal. Right atrial size is normal. There is mild aortic sclerosis. no significant valvular regurgitations are seen There is no pericardial effusion. Sanya Gutierrez MD 02/21/2020 11:33 AM
--- NOTE | 2020-02-21 12:00 | PN ---
Teaching Attending Note Name of Resident: Roger Silverio ATTENDING PHYSICIAN STATEMENT I saw and evaluated the patient. I reviewed the resident's note and discussed the case with the resident. I agree with the resident's findings and plan as documented. SUBJECTIVE: pt seen and examined, feeling much better OBJECTIVE: Last Vital Signs Temp Pulse Resp BP Pulse Ox 98.7 F 80 18 122/53 L 97 02/21/20 10:00 02/21/20 10:00 02/21/20 10:00 02/21/20 10:00 02/21/20 10:00 GENERAL: The patient is awake, alert, and fully oriented, in no acute distress. LUNGS: Breath sounds equal, lt lower lobe inspiratory rales noted, no wheezes, no crackles, no accessory muscle use. HEART: Regular rate and rhythm, S1, S2 without murmur, rub or gallop. ABDOMEN: Soft, nontender, nondistended, normoactive bowel sounds, no guarding, no rebound, no hepatosplenomegaly, no masses. EXTREMITIES: 2+ pulses, warm, well-perfused, no edema. Labs reviewed Active Medications Acetaminophen (Tylenol -) 650 mg PO Q6H PRN PRN Reason: PAIN LEVEL 1-5 Last Admin: 02/21/20 03:22 Dose: 650 mg Documented by: Apixaban (Eliquis -) 5 mg PO BID [facility] Last Admin: 02/21/20 10:51 Dose: 5 mg Documented by: Atorvastatin Calcium (Lipitor -) 10 mg PO [facility] Last Admin: 02/20/20 22:17 Dose: 10 mg Documented by: Azithromycin (Zithromax -) 500 mg PO DAILY [facility] Last Admin: 02/21/20 10:51 Dose: 500 mg Documented by: Ceftriaxone Sodium 1 gm/ (Dextrose) 50 mls @ 100 mls/hr IVPB DAILY [facility] Last Admin: 02/21/20 10:51 Dose: 100 mls/hr Documented by: Nortriptyline HCl (Pamelor -) 50 mg PO [facility] Last Admin: 02/20/20 22:16 Dose: 50 mg Documented by: Propranolol HCl (Inderal La -) 120 mg PO [facility] Last Admin: 02/20/20 22:16 Dose: 120 mg Documented by: ASSESSMENT AND PLAN: 64 year old gentleman with history of hyperlipidemia, migraines, obesity, CKD( single kidney s/p donation) and recent sciatica presents with complaint of shortness of breath that started while lifting his grandson, he also endorses recent sciatica in 2019. # Dyspnea with lt sided chest pain on deep inspiration/sneezing: -improved -Acute DVT to rule out PE, to rule out ACS -pleurisy with possible underlying pneumonia -afebrile, WBC trended down -COVID test negative -V/Q scan showed low probability for PE -EKG no changes, trop negative -reports last stress test negative in january -pulmonary consult appreciated -cardiology consult appreciated # Lt DVT, provoked -US doppler found new lt DVT. -started Apixaban 5mg bid for 3-6month -hemodynamically stable #HFrEF with diastolic dysfunction -low salt diet, maintain I/O -lasix -ECHO showed LVEF 45-50% with grade I diastolic dysfunction -to consider low dose carvedilol prior to dc. will need cardiology follow up lung nodule (reported to be stable, will need f/u CT, lifetime non smoker) HLD Obesity Migraine CKD sciatica constipation DVT prophylaxis on full dose AC Plan: to switch Abx to PO in AM if improvement continues, start carvidelol and DC for outpatient follow up with cardiology
--- NOTE | 2020-02-21 13:05 | PN ---
Progress Note (short form) - Note Progress Note: PULMONARY States feeling better today. Less short of breath and chest pain. Vital Signs Period Temp Pulse Resp BP Sys/Alcaraz Pulse Ox Last 24 Hr 97.7 F-98.7 F 68-88 18-20 114-134/53-82 93-98 Gen: NAD at rest Heart: RRR Lung: decreased breath sounds at the bases Abd: soft, nontender Ext: no edema CBC, BMP 02/21/20 07:08 02/21/20 07:08 Active Medications Acetaminophen (Tylenol -) 650 mg PO Q6H PRN PRN Reason: PAIN LEVEL 1-5 Last Admin: 02/21/20 03:22 Dose: 650 mg Documented by: Apixaban (Eliquis -) 5 mg PO BID [facility] Last Admin: 02/21/20 10:51 Dose: 5 mg Documented by: Atorvastatin Calcium (Lipitor -) 10 mg PO [facility] Last Admin: 02/20/20 22:17 Dose: 10 mg Documented by: Azithromycin (Zithromax -) 500 mg PO DAILY [facility] Last Admin: 02/21/20 10:51 Dose: 500 mg Documented by: Ceftriaxone Sodium 1 gm/ (Dextrose) 50 mls @ 100 mls/hr IVPB DAILY [facility] Last Admin: 02/21/20 10:51 Dose: 100 mls/hr Documented by: Nortriptyline HCl (Pamelor -) 50 mg PO [facility] Last Admin: 02/20/20 22:16 Dose: 50 mg Documented by: Propranolol HCl (Inderal La -) 120 mg PO [facility] Last Admin: 02/20/20 22:16 Dose: 120 mg Documented by: A/P Acute LLE DVT Likely PE CKD Hyperlipidemia Lung Nodule Morbid Obesity - continue anticoagulation, agree with oral meds - O2 to keep SpO2 >90% - outpt f/u of lung nodule
--- NOTE | 2020-02-21 14:23 | PN ---
Physical Exam: SUBJECTIVE: Patient seen and examined this morning, breathing well, off oxygen. Speaking in full sentences. OBJECTIVE: Vital Signs Period Temp Pulse Resp BP Sys/Alcaraz Pulse Ox Last 24 Hr 97.7 F-98.7 F 73-88 18-20 114-134/53-82 93-98 GENERAL: The patient is awake, alert, and fully oriented, in no acute distress. HEAD: Normal with no signs of trauma. EYES: PERRL, extraocular movements intact, sclera anicteric, conjunctiva clear. No ptosis. ENT: Ears normal, nares patent, oropharynx clear without exudates, moist mucous membranes. NECK: Trachea midline, full range of motion, supple. LUNGS: Breath sounds equal, clear to auscultation bilaterally, no wheezes, no crackles, no accessory muscle use. HEART: Regular rate and rhythm, S1, S2 without murmur, rub or gallop. ABDOMEN: Soft, nontender, nondistended, normoactive bowel sounds, no guarding EXTREMITIES: 2+ pulses, warm, well-perfused, no edema. NEUROLOGICAL: Normal speech, gait not observed. PSYCH: Normal mood, normal affect. SKIN: Warm, dry, normal turgor, no rashes or lesions noted Laboratory Results - last 24 hr CBC, BMP 02/21/20 07:08 02/21/20 07:08 Active Medications Generic Name Dose Route Start Last Admin Trade Name Freq PRN Reason Stop Dose Admin Acetaminophen 650 mg 02/20/20 18:27 02/21/20 03:22 Tylenol - PO 650 mg Q6H PRN Administration PAIN LEVEL 1-5 Apixaban 5 mg 02/21/20 10:00 02/21/20 10:51 Eliquis - PO 5 mg BID EM Administration Atorvastatin Calcium 10 mg 02/18/20 22:00 02/20/20 22:17 Lipitor - PO 10 mg HS EM Administration Azithromycin 500 mg 02/20/20 10:00 02/21/20 10:51 Zithromax - PO 500 mg DAILY EM Administration Ceftriaxone Sodium 1 gm/ 50 mls @ 100 mls/hr 02/20/20 10:00 02/21/20 10:51 Dextrose IVPB 100 mls/hr DAILY EM Administration Nortriptyline HCl 50 mg 02/19/20 22:00 02/20/20 22:16 Pamelor - PO 50 mg HS EM Administration Propranolol HCl 120 mg 02/18/20 22:00 02/20/20 22:16 Inderal La - PO 120 mg HS EM Administration ASSESSMENT/PLAN: Pt is a 64 yo M with PMHx of HLD, migraines, obesity, CKD (single kidney s/p donation) recent sciatica presents with complaint of shortness of breath that started while lifting his grandson, admitted for dyspnea and DVT. EXERTIONAL DYSPNEA LIKELY 2/2 PULMONARY INFECTION W/ MUSCULAR CHEST PAIN ON DEEP INSPIRATION -Afebrile w/ decreasing WBC (11.8) -COVID negative -V/Q scan -- low probability PE -c/w Rocephin - Day - 2 -Switch to oral abx tomorrow NEW HFwREF WITH DIASTOLIC DYSFUNCTION -ECHO: EF 45-50%; Mild concentric LV hypertrophy; LV systolic function mildly reduced, mild global hypokinesis of LV, Grade I diastolic dysfunction -Dyspnea on Exertion -Per Cards: Start Low Dose PO Lasix 20mg LEFT DVT PROVOKED -Doppler U/S showing L DVT -DC Lovenox -Start Eliquis 5mg BID LUNG NODULE ON IMAGING -f/u CT for comparison w/ PCP HYPOPHOSPHATEMIA -2.4 today -Phos Nak given -Replete <2.5 Hx OF HLD -c/w lipitor 10mg OBSESITY -continue diet, weight loss, exercise, and healthy eating habits -FU w/ PCP and outpatient agent ticketing gate MIGRAINES -Holding home sumatriptan -c/w Propranolol 120mg HS -c/w Nortriptyline 50mg HS KIDNEY DONOR (1 KIDNEY REMAINING) -Monitor Cr; 1.2 today -FU outpatient nephrology FEN -No standing fluids -Monitor lytes -Chol/fat/sodium restricted diet PPx -DVT: Eliquis 5mg BID Dispo Continue to monitor on tele Visit type - Emergency Visit Emergency Visit: No - New Patient This patient is new to me today: Yes Date on this admission: 02/21/20 - Critical Care Critical Care patient: No - Discharge Referral Referred to [facility] Med P.C[facility] No ATTENDING PHYSICIAN STATEMENT I saw and evaluated the patient. I reviewed the resident's note and discussed the case with the resident. I agree with the resident's findings and plan as documented. SUBJECTIVE: OBJECTIVE: ASSESSMENT AND PLAN:
--- NOTE | 2020-02-21 14:25 | PN ---
Progress Note, Physician History of Present Illness: Pt seen and examined at bedside. He is awake and alert. He denies shortness of breath at rest. - Current Medication List Current Medications: Active Medications Acetaminophen (Tylenol -) 650 mg PO Q6H PRN PRN Reason: PAIN LEVEL 1-5 Last Admin: 02/21/20 03:22 Dose: 650 mg Documented by: Apixaban (Eliquis -) 5 mg PO BID [facility] Last Admin: 02/21/20 10:51 Dose: 5 mg Documented by: Atorvastatin Calcium (Lipitor -) 10 mg PO HS [facility] Last Admin: 02/20/20 22:17 Dose: 10 mg Documented by: Azithromycin (Zithromax -) 500 mg PO DAILY [facility] Last Admin: 02/21/20 10:51 Dose: 500 mg Documented by: Ceftriaxone Sodium 1 gm/ (Dextrose) 50 mls @ 100 mls/hr IVPB DAILY [facility] Last Admin: 02/21/20 10:51 Dose: 100 mls/hr Documented by: Nortriptyline HCl (Pamelor -) 50 mg PO [facility] Last Admin: 02/20/20 22:16 Dose: 50 mg Documented by: Propranolol HCl (Inderal La -) 120 mg PO [facility] Last Admin: 02/20/20 22:16 Dose: 120 mg Documented by: - Objective Vital Signs: Vital Signs Temperature 97.9 F 02/21/20 13:48 Pulse Rate 78 02/21/20 13:48 Respiratory Rate 18 02/21/20 13:48 Blood Pressure 128/67 02/21/20 13:48 O2 Sat by Pulse Oximetry (%) 97 02/21/20 10:00 Constitutional: Yes: Calm Eyes: Yes: Conjunctiva Clear HENT: Yes: Atraumatic Neck: Yes: Supple Cardiovascular: Yes: S1, S2 Respiratory: Yes: CTA Bilaterally Gastrointestinal: Yes: Soft, Abdomen, Obese Genitourinary: Yes: WNL Musculoskeletal: Yes: WNL Edema: No Neurological: Yes: Oriented Psychiatric: Yes: Oriented Labs: CBC, BMP 02/21/20 07:08 02/21/20 07:08 INR, PTT INR 1.09 (0.83-1.09) 02/18/20 14:15 Problem List - Problems (1) Acquired solitary kidney Code(s): Z90.5 - ACQUIRED ABSENCE OF KIDNEY (2) Suspected pulmonary embolism Code(s): R09.89 - OTH SYMPTOMS AND SIGNS INVOLVING THE CIRC AND RESP SYSTEMS Assessment/Plan Current Medications Generic Name Dose Route Start Last Admin Trade Name Matthew PRN Reason Stop Dose Admin Acetaminophen 650 mg 02/20/20 18:27 02/21/20 03:22 Tylenol - PO 650 mg Q6H PRN Administration PAIN LEVEL 1-5 Apixaban 5 mg 02/21/20 10:00 02/21/20 10:51 Eliquis - PO 5 mg BID EM Administration Atorvastatin Calcium 10 mg 02/18/20 22:00 02/20/20 22:17 Lipitor - PO 10 mg HS EM Administration Azithromycin 500 mg 02/20/20 10:00 02/21/20 10:51 Zithromax - PO 500 mg DAILY EM Administration Ceftriaxone Sodium 1 gm/ 50 mls @ 100 mls/hr 02/20/20 10:00 02/21/20 10:51 Dextrose IVPB 100 mls/hr DAILY EM Administration Nortriptyline HCl 50 mg 02/19/20 22:00 02/20/20 22:16 Pamelor - PO 50 mg HS EM Administration Propranolol HCl 120 mg 02/18/20 22:00 02/20/20 22:16 Inderal La - PO 120 mg HS EM Administration Impression 1. CKD 2. kidney donation 3. Acute LLE DVT 4. Hyperlipidemia 5. Lung Nodule 6. Obesity Plan - renal function is improving - cont to monitor housing coordinator - replace phos - avoid nephrotoxins
[2020-02-21] MEDS ORDERED: NAPH,MB-DB/K PH,MBDB POWDER PACKET PO ONE (14:45)
--- NOTE | 2020-02-21 15:11 | PN ---
Progress Note, Physician History of Present Illness: 64M w/hx HLD, migraines p/w two days of worsening dyspnea, orthopnea. He reports that two days ago he realized that he was increasingly short of breath with exertion while walking around the house. He reports dutifully remaining in quarantine and maintaining safe social distancing, except for occasionally watching his 4yo granddaughter. He reports that he has needed to prop himself up to sleep at night, and that his sob worsens while laying flat. He reports presenting to Urgent Care today for his worsening shortness of breath and dyspnea, and was found to have O2% to 96% on room air that dropped to 90% with ambulation. He denies any lower extremity swelling, fevers, chills, cough, we akness, confusion, chest pain, or palpitations. - Current Medication List Current Medications: Active Medications Acetaminophen (Tylenol -) 650 mg PO Q6H PRN PRN Reason: PAIN LEVEL 1-5 Last Admin: 02/21/20 03:22 Dose: 650 mg Documented by: Apixaban (Eliquis -) 5 mg PO BID [facility] Last Admin: 02/21/20 10:51 Dose: 5 mg Documented by: Atorvastatin Calcium (Lipitor -) 10 mg PO [facility] Last Admin: 02/20/20 22:17 Dose: 10 mg Documented by: Azithromycin (Zithromax -) 500 mg PO DAILY [facility] Last Admin: 02/21/20 10:51 Dose: 500 mg Documented by: Ceftriaxone Sodium 1 gm/ (Dextrose) 50 mls @ 100 mls/hr IVPB DAILY [facility] Last Admin: 02/21/20 10:51 Dose: 100 mls/hr Documented by: Nortriptyline HCl (Pamelor -) 50 mg PO [facility] Last Admin: 02/20/20 22:16 Dose: 50 mg Documented by: Propranolol HCl (Inderal La -) 120 mg PO [facility] Last Admin: 02/20/20 22:16 Dose: 120 mg Documented by: - Objective Vital Signs: Vital Signs Temperature 97.9 F 02/21/20 13:48 Pulse Rate 78 02/21/20 13:48 Respiratory Rate 18 02/21/20 13:48 Blood Pressure 128/67 02/21/20 13:48 O2 Sat by Pulse Oximetry (%) 97 02/21/20 10:00 Eyes: Yes: WNL, Conjunctiva Clear, EOM Intact HENT: Yes: WNL, Atraumatic, Normocephalic Neck: Yes: WNL, Supple, Trachea Midline Cardiovascular: Yes: WNL, Regular Rate and Rhythm Respiratory: Yes: WNL, Regular, CTA Bilaterally Gastrointestinal: Yes: WNL, Normal Bowel Sounds Genitourinary: Yes: WNL Musculoskeletal: Yes: WNL Extremities: Yes: WNL Edema: No Integumentary: Yes: WNL Neurological: Yes: WNL, Alert, Oriented ...Motor Strength: WNL Psychiatric: Yes: WNL Labs: CBC, BMP 02/21/20 07:08 02/21/20 07:08 INR, PTT INR 1.09 (0.83-1.09) 02/18/20 14:15 Problem List - Problems (1) Acquired solitary kidney Code(s): Z90.5 - ACQUIRED ABSENCE OF KIDNEY (2) DVT (deep venous thrombosis) Code(s): I82.409 - ACUTE EMBOLISM AND THOMBOS UNSP DEEP VN UNSP LOWER EXTREMITY (3) SOB (shortness of breath) on exertion Code(s): R06.02 - SHORTNESS OF BREATH (4) Suspected pulmonary embolism Code(s): R09.89 - OTH SYMPTOMS AND SIGNS INVOLVING THE CIRC AND RESP SYSTEMS (5) Chest pain Code(s): R07.9 - CHEST PAIN, UNSPECIFIED Assessment/Plan Imp; Acute DVT LBBB - resolved CHF decompensated [facility] kidney 2/[address] donation [address] [facility] 2019 V/Q scan negative for PE ECHO nl ef in Jan 2020 - BNP nl at that time, Cr. unchanged at 1.5 ECHO [id number] EF 45-50% Plan; Cont Eliquis Telemetry serial EKGs and TNIs Low dose of PO Lasix - monitor BUN/Cr
[2020-02-21] MEDS ORDERED: POLYETHYLENE GLYCOL 3350 119 GM BTL PO PRN (18:38)
[2020-02-21] MEDS: FUROSEMIDE 20 MG TABLET (FP) PO SCH (19:01)
[2020-02-21] MEDS ORDERED: PT OWN MED DRAWER 7, Y5N ONE (20:10)
[2020-02-21] MEDS: ATORVASTATIN CA 10 MG TABLET (FP) PO SCH (21:10)
[2020-02-21] MEDS: NORTRIPTYLINE HCL 25 MG CAPSULE PO SCH (21:10)
[2020-02-22 07:43] LABS: POTASSIUM 4.3 mmol/L (3.5-5.1)
[2020-02-22 07:47] LABS: BLOOD UREA NITROGEN 17.6 mg/dL (7-18)
[2020-02-22 07:49] LABS: CALCIUM 8.8 mg/dL (8.5-10.1)
[2020-02-22 07:50] LABS: CREATININE 1.2 mg/dL (0.55-1.3); PHOSPHOROUS 2.8 mg/dL (2.5-4.9)
[2020-02-22 07:51] LABS: MAGNESIUM 2.2 mg/dL (1.8-2.4)
[2020-02-22 07:55] LABS: BASO % 0.5 % (0-2.0); EOS % 5.5 % (0-4.5); HEMATOCRIT 39.3 % (35.4-49); HEMOGLOBIN 13.2 GM/dL (11.7-16.9); MCH 30.1 pg (25.7-33.7); MCHC 33.6 g/dl (32.0-35.9); MEAN CELL VOLUME 89.5 fl (80-96); MEAN PLT VOLUME 7.9 fl (7.5-11.1); MONO % 8.7 % (3.8-10.2); NEUT % 68.3 % (42.8-82.8); PLATELET COUNT 114 K/MM3 (134-434); RBC 4.39 M/mm3 (4.00-5.60); RDW 14.1 % (11.9-15.9)
[2020-02-22] MEDS ORDERED: cefTRIAXone SODIUM 1 GM VIAL ONE (09:20)
[2020-02-22] MEDS ORDERED: DEXTROSE 5%-WATER - 50 ML IVPB ONE (09:20)
[2020-02-22] MEDS: APIXABAN 5 MG TABLET PO SCH (09:38)
[2020-02-22] MEDS: FUROSEMIDE 20 MG TABLET (FP) PO SCH (09:38)
[2020-02-22] MEDS: CEFTRIAXONE 1 GM in DEXTROSE 5%-WATER - 50 ML IVPB SCH (09:39)
[2020-02-22] MEDS: AZITHROMYCIN 250 MG TABLET PO SCH (09:39)
--- NOTE | 2020-02-22 09:41 | PN ---
Progress Note, Physician Chief Complaint: Pt A&Ox3; feels stronger today, and not dyspneic at rest. History of Present Illness: Mr. Lindsey is a 64 yr old white man w/hx HLD, migraines (on Propanolol and Nortriptylene for >20 years), LBBB, obesity,?sleep apnea, donated one of his kidneys, p/w two days of worsening dyspnea, orthopnea. He reports that two days ago he realized that he was increasingly short of breath with exertion while walking around the house. He reports dutifully remaining in quarantine and maintaining safe social distancing, except for occasionally watching his 4yo granddaughter. He reports that he has needed to prop himself up to sleep at night, and that his sob worsens while laying flat. He reports presenting to Urgent Care today for his worsening shortness of breath and dyspnea, and was found to have O2% to 96% on room air that dropped to 90% with ambulation. He denies any lower extremity swelling, fevers, chills, cough, weakness, confusion, chest pain, or palpitations. Brother had [place] in his 60s. Pt had stress MIBI at this hospital 01/2020: no ischemia. - Current Medication List Current Medications: Active Medications Acetaminophen (Tylenol -) 650 mg PO Q6H PRN PRN Reason: PAIN LEVEL 1-5 Last Admin: 02/21/20 21:10 Dose: 650 mg Documented by: Apixaban (Eliquis -) 5 mg PO BID [facility] Last Admin: 02/21/20 21:10 Dose: 5 mg Documented by: Atorvastatin Calcium (Lipitor -) 10 mg PO [facility] Last Admin: 02/21/20 21:10 Dose: 10 mg Documented by: Azithromycin (Zithromax -) 500 mg PO DAILY [facility] Last Admin: 02/21/20 10:51 Dose: 500 mg Documented by: Furosemide (Lasix -) 20 mg PO DAILY [facility] Last Admin: 02/21/20 19:01 Dose: 20 mg Documented by: Ceftriaxone Sodium 1 gm/ (Dextrose) 50 mls @ 100 mls/hr IVPB DAILY [facility] Last Admin: 02/21/20 10:51 Dose: 100 mls/hr Documented by: Lisinopril (Prinivil) 2.5 mg PO DAILY [facility] Nortriptyline HCl (Pamelor -) 50 mg PO [facility] Last Admin: 02/21/20 21:10 Dose: 50 mg Documented by: Polyethylene Glycol (Miralax (For Daily Use) -) 17 gm PO BID PRN PRN Reason: CONSTIPATION Last Admin: 02/21/20 19:01 Dose: 17 gm Documented by: Propranolol HCl (Inderal La -) 120 mg PO [facility] Last Admin: 02/21/20 21:10 Dose: 120 mg Documented by: - Objective Vital Signs: Vital Signs Temperature 98.9 F 02/22/20 06:00 Pulse Rate 77 02/22/20 06:00 Respiratory Rate 20 02/22/20 06:00 Blood Pressure 110/57 L 02/22/20 06:00 O2 Sat by Pulse Oximetry (%) 97 02/22/20 06:00 Labs: CBC, BMP 02/22/20 06:23 02/22/20 06:23 INR, PTT INR 1.09 (0.83-1.09) 02/18/20 14:15 Assessment/Plan Imp; Acute DVT LBBB - resolved systolic CHF decompensated [facility] kidney secondary to donation acute systolic CHF Neg [facility] Jan. 2019 V/Q scan negative for PE ECHO [id number] EF 45-50% Plan: Start lisinopril 2.5 mg daily; f/u renal parameters carefully (discussed with Dr. Cornejo, bilingual sales assistant). Consider continuing small dose of furosemide if CHF again deteriorates despite ACEI and beta blockers. Idealy, propanolol could be changed to one of the beta blockers proven effective with systolic CHF (e.g., metoprolol, carvedilol, or bisoprolol). Pt says he does not mind the change, but it should first be discussed also with pt's PMD (Dr. Ku) and neurologist. Continue Eliquis Telemetry serial EKGs and TNIs BUN/Cr, electrolytes, daily weight, Is and Os. Pt agrees to dietary consult. He would like to be <200 lbs; he knows he eats too many sweets and bread (loves to bake). Addendum: I spoke with pt's PMD and his neurologist; both agree that propanolol may be changed to another beta bloocker. Will start metoprolol ER 50 mg daily.
[2020-02-22] MEDS ORDERED: LISINOPRIL 5 MG TABLET PO SCH (10:00)
--- NOTE | 2020-02-22 10:44 | PN ---
Progress Note, Physician History of Present Illness: pulmonary alert,comfortable at rest,+ sob with min exertion,-cp,cough. echo nl rv,-pul htn - Current Medication List Current Medications: Active Medications Acetaminophen (Tylenol -) 650 mg PO Q6H PRN PRN Reason: PAIN LEVEL 1-5 Last Admin: 02/21/20 21:10 Dose: 650 mg Documented by: Apixaban (Eliquis -) 5 mg PO BID [facility] Last Admin: 02/22/20 09:38 Dose: 5 mg Documented by: Atorvastatin Calcium (Lipitor -) 10 mg PO HS [facility] Last Admin: 02/21/20 21:10 Dose: 10 mg Documented by: Azithromycin (Zithromax -) 500 mg PO DAILY [facility] Last Admin: 02/22/20 09:39 Dose: 500 mg Documented by: Furosemide (Lasix -) 20 mg PO DAILY [facility] Last Admin: 02/22/20 09:38 Dose: 20 mg Documented by: Ceftriaxone Sodium 1 gm/ (Dextrose) 50 mls @ 100 mls/hr IVPB DAILY [facility] Last Admin: 02/22/20 09:39 Dose: 100 mls/hr Documented by: Lisinopril (Prinivil) 2.5 mg PO DAILY [facility] Last Admin: 02/22/20 09:38 Dose: 2.5 mg Documented by: Nortriptyline HCl (Pamelor -) 50 mg PO [facility] Last Admin: 02/21/20 21:10 Dose: 50 mg Documented by: Polyethylene Glycol (Miralax (For Daily Use) -) 17 gm PO BID PRN PRN Reason: CONSTIPATION Last Admin: 02/21/20 19:01 Dose: 17 gm Documented by: Propranolol HCl (Inderal La -) 120 mg PO [facility] Last Admin: 02/21/20 21:10 Dose: 120 mg Documented by: - Objective Vital Signs: Vital Signs Temperature 98.7 F 02/22/20 10:00 Pulse Rate 79 02/22/20 10:00 Respiratory Rate 20 02/22/20 10:00 Blood Pressure 132/68 02/22/20 10:00 O2 Sat by Pulse Oximetry (%) 95 02/22/20 10:00 Constitutional: Yes: Well Nourished, Calm Eyes: Yes: WNL HENT: Yes: WNL Neck: Yes: WNL Cardiovascular: Yes: Regular Rate and Rhythm, S1, S2 Respiratory: Yes: CTA Bilaterally Gastrointestinal: Yes: Normal Bowel Sounds, Soft Extremities: Yes: WNL (swelling lle), Other Labs: CBC, BMP 02/22/20 06:23 02/22/20 06:23 INR, PTT INR 1.09 (0.83-1.09) 02/18/20 14:15 Assessment/Plan A/P Acute LLE DVT Likely PE CKD Hyperlipidemia Lung Nodule Morbid Obesity - anticoagulation - O2 to keep SpO2 >90% - outpt f/u of lung nodule - W/U for hypercoagulable state as outpatient DR TAPIA
--- NOTE | 2020-02-22 12:32 | PN ---
Progress Note, Physician History of Present Illness: Pt seen and examined at bedside. He is awake and alert. He denies shortness of breath. - Current Medication List Current Medications: Active Medications Acetaminophen (Tylenol -) 650 mg PO Q6H PRN PRN Reason: PAIN LEVEL 1-5 Last Admin: 02/21/20 21:10 Dose: 650 mg Documented by: Apixaban (Eliquis -) 5 mg PO BID [facility] Last Admin: 02/22/20 09:38 Dose: 5 mg Documented by: Atorvastatin Calcium (Lipitor -) 10 mg PO HS [facility] Last Admin: 02/21/20 21:10 Dose: 10 mg Documented by: Azithromycin (Zithromax -) 500 mg PO DAILY [facility] Last Admin: 02/22/20 09:39 Dose: 500 mg Documented by: Furosemide (Lasix -) 20 mg PO DAILY [facility] Last Admin: 02/22/20 09:38 Dose: 20 mg Documented by: Ceftriaxone Sodium 1 gm/ (Dextrose) 50 mls @ 100 mls/hr IVPB DAILY [facility] Last Admin: 02/22/20 09:39 Dose: 100 mls/hr Documented by: Lisinopril (Prinivil) 2.5 mg PO DAILY [facility] Last Admin: 02/22/20 09:38 Dose: 2.5 mg Documented by: Nortriptyline HCl (Pamelor -) 50 mg PO [facility] Last Admin: 02/21/20 21:10 Dose: 50 mg Documented by: Polyethylene Glycol (Miralax (For Daily Use) -) 17 gm PO BID PRN PRN Reason: CONSTIPATION Last Admin: 02/21/20 19:01 Dose: 17 gm Documented by: Propranolol HCl (Inderal La -) 120 mg PO [facility] Last Admin: 02/21/20 21:10 Dose: 120 mg Documented by: - Objective Vital Signs: Vital Signs Temperature 98.7 F 02/22/20 10:00 Pulse Rate 79 02/22/20 10:00 Respiratory Rate 20 02/22/20 10:00 Blood Pressure 132/68 02/22/20 10:00 O2 Sat by Pulse Oximetry (%) 95 02/22/20 10:00 Constitutional: Yes: Calm Eyes: Yes: Conjunctiva Clear HENT: Yes: Atraumatic Cardiovascular: Yes: S1, S2 Respiratory: Yes: CTA Bilaterally Gastrointestinal: Yes: Soft, Abdomen, Obese Genitourinary: Yes: WNL Musculoskeletal: Yes: WNL Edema: No Neurological: Yes: Oriented Psychiatric: Yes: Oriented Labs: CBC, BMP 02/22/20 06:23 02/22/20 06:23 INR, PTT INR 1.09 (0.83-1.09) 02/18/20 14:15 Problem List - Problems (1) Acquired solitary kidney Code(s): Z90.5 - ACQUIRED ABSENCE OF KIDNEY (2) Suspected pulmonary embolism Code(s): R09.89 - OTH SYMPTOMS AND SIGNS INVOLVING THE CIRC AND RESP SYSTEMS Assessment/Plan Current Medications Generic Name Dose Route Start Last Admin Trade Name Freq PRN Reason Stop Dose Admin Acetaminophen 650 mg 02/20/20 18:27 02/21/20 21:10 Tylenol - PO 650 mg Q6H PRN Administration PAIN LEVEL 1-5 Apixaban 5 mg 02/21/20 10:00 02/22/20 09:38 Eliquis - PO 5 mg BID EM Administration Atorvastatin Calcium 10 mg 02/18/20 22:00 02/21/20 21:10 Lipitor - PO 10 mg HS EM Administration Azithromycin 500 mg 02/20/20 10:00 02/22/20 09:39 Zithromax - PO 500 mg DAILY EM Administration Furosemide 20 mg 02/21/20 18:45 02/22/20 09:38 Lasix - PO 20 mg DAILY EM Administration Ceftriaxone Sodium 1 gm/ 50 mls @ 100 mls/hr 02/20/20 10:00 02/22/20 09:39 Dextrose IVPB 100 mls/hr DAILY EM Administration Lisinopril 2.5 mg 02/22/20 10:00 02/22/20 09:38 Prinivil PO 2.5 mg DAILY EM Administration Nortriptyline HCl 50 mg 02/19/20 22:00 02/21/20 21:10 Pamelor - PO 50 mg HS EM Administration Polyethylene Glycol 17 gm 02/21/20 18:38 02/21/20 19:01 Miralax (For Daily Use) - PO 17 gm BID PRN Administration CONSTIPATION Propranolol HCl 120 mg 02/18/20 22:00 02/21/20 21:10 Inderal La - PO 120 mg HS EM Administration 1. CKD 2. kidney donation 3. Acute LLE DVT 4. Hyperlipidemia 5. Lung Nodule 6. Obesity Plan - cont lisinopril with close monitoring of renal function - monitor volume status off of lasix, discussed with cardio - ua neg for blood or protein - will need outpt follow up - avoid nephrotoxins
[2020-02-22 14:07] VITALS: BP 114/52; PULSE 82; TEMP 98.8
--- NOTE | 2020-02-22 14:34 | PN ---
Teaching Attending Note Name of Resident: Favian Yeager ATTENDING PHYSICIAN STATEMENT I saw and evaluated the patient. I reviewed the resident's note and discussed the case with the resident. I agree with the resident's findings and plan as documented. SUBJECTIVE: Feeling much improved, still slightly short of breath on exertion. no fever/chills/sputum. No CP/hemoptysis. OBJECTIVE: Afebrile, Hemodynamically Stable. Last Vital Signs Temp Pulse Resp BP Pulse Ox 98.8 F 82 20 114/52 L 96 02/22/20 14:00 02/22/20 14:00 02/22/20 14:00 02/22/20 14:00 02/22/20 14:00 HEENT - Atramatic, Normocephalic. Heart - S1, S2, RRR Lungs - clear to auscultation Abdomen - Soft, non-tender. Bowel Sounds normal. Extremities - no edema, no calf tenderness. Neuro - AAO x 3. Tone/Power normal. Laboratory Results - last 24 hr 02/22/20 02/22/20 02/22/20 06:23 06:23 08:05 WBC 10.0 RBC 4.39 Hgb 13.2 Hct 39.3 MCV 89.5 MCH 30.1 MCHC 33.6 RDW 14.1 Plt Count 114 L MPV 7.9 Absolute Neuts (auto) 6.9 Neutrophils % 68.3 Lymphocytes % 17.0 Monocytes % 8.7 Eosinophils % 5.5 H Basophils % 0.5 Nucleated RBC % 0 PTT (Actin FS) 34.9 Sodium 137 Potassium 4.3 Chloride 104 Carbon Dioxide 26 Anion Gap 7 L BUN 17.6 Creatinine 1.2 Est GFR (CKD-EPI)AfAm 74.14 Est GFR (CKD-EPI)NonAf 63.97 Random Glucose 93 Calcium 8.8 Phosphorus 2.8 Magnesium 2.2 TSH 1.73 D Current Medications Generic Name Dose Route Start Last Admin Trade Name Freq PRN Reason Stop Dose Admin Acetaminophen 650 mg 02/20/20 18:27 02/21/20 21:10 Tylenol - PO 650 mg Q6H PRN Administration PAIN LEVEL 1-5 Apixaban 5 mg 02/21/20 10:00 02/22/20 09:38 Eliquis - PO 5 mg BID EM Administration Atorvastatin Calcium 10 mg 02/18/20 22:00 02/21/20 21:10 Lipitor - PO 10 mg HS EM Administration Azithromycin 500 mg 02/20/20 10:00 02/22/20 09:39 Zithromax - PO 500 mg DAILY EM Administration Ceftriaxone Sodium 1 gm/ 50 mls @ 100 mls/hr 02/20/20 10:00 02/22/20 09:39 Dextrose IVPB 100 mls/hr DAILY EM Administration Lisinopril 2.5 mg 02/22/20 10:00 02/22/20 09:38 Prinivil PO 2.5 mg DAILY EM Administration Metoprolol Succinate 50 mg 02/22/20 13:00 02/22/20 13:35 Toprol Xl - PO 50 mg DAILY EM Administration Nortriptyline HCl 50 mg 02/19/20 22:00 02/21/20 21:10 Pamelor - PO 50 mg HS EM Administration Polyethylene Glycol 17 gm 02/21/20 18:38 02/21/20 19:01 Miralax (For Daily Use) - PO 17 gm BID PRN Administration CONSTIPATION Home Medications Medication Instructions Recorded Lovastatin 40 mg PO DAILY 01/06/20 Nortriptyline HCl [Pamelor -] 50 mg PO HS 01/06/20 propRANOLol HCL [Propranolol HCl 120 mg PO HS 01/06/20 ER] Aspirin [Aspirin EC] 81 mg PO DAILY 02/19/20 Fish Oil 500 mg Softgel 1 tab PO DAILY 02/19/20 Multivit ([facility] Formulary) 1 tab PO DAILY 02/19/20 ASSESSMENT AND PLAN: 64 year old male with history of HLD, Migraines, Obesity, CKD 3 (single kidney s/p donation), presents with shortness of breath, found to have DVT/likely PE and possible Pneumonia. 1. Acute DVT, Likely PE US Duplex LLE DVT CT Chest - Pneumonia vs acute infarct Started on Eliquis Hematology referral as out-patient for hypercoagulable work-up. 2. Pneumonia, L basal infiltrate, community acquired Afebrile, Hemodynamically stable. Leukocytosis resolved. Day 3 Ceftriaxone/Azithro - for 2 additional days Abx therapy. 3. Acute on Chronic Systolic/Diastolic CHF - new diagnosis, improved with Lasix diuresis, now held as per Cardio/Nephrology. ECHO - LVEF 45-50% with grade I diastolic dysfunction Cardiology following - switched from Propranolol to Metoprolol. Lisinopril added. 4. VERONIQUE on CKD 3 - resolved. 5. Lung Nodule, stable - Pulm follow up on discharge. 6. HLD - Continue Statin DVT px - started on Eliquis.
--- NOTE | 2020-02-22 16:56 | DS ---
Physical Exam: SUBJECTIVE: Patient seen and examined this morning, speaking in full sentences, states pain when breathing has decreased, feels less fatigued. OBJECTIVE: Vital Signs Period Temp Pulse Resp BP Sys/Alcaraz Pulse Ox Last 24 Hr 97.9 F-98.9 F 47-86 18-20 110-153/52-75 95-99 PHYSICAL EXAM GENERAL: The patient is awake, alert, and fully oriented, in no acute distress. HEAD: Normal with no signs of trauma. EYES: PERRL, extraocular movements intact, sclera anicteric, conjunctiva clear. No ptosis. ENT: Ears normal, nares patent, oropharynx clear without exudates, moist mucous membranes. NECK: Trachea midline, full range of motion, supple. LUNGS: Breath sounds equal, clear to auscultation bilaterally, no wheezes, no crackles, no accessory muscle use. HEART: Regular rate and rhythm, S1, S2 without murmur, rub or gallop. ABDOMEN: Soft, nontender, nondistended, normoactive bowel sounds, no guarding EXTREMITIES: 2+ pulses, warm, well-perfused, no edema. NEUROLOGICAL: Normal speech, gait not observed. PSYCH: Normal mood, normal affect. SKIN: Warm, dry, normal turgor, no rashes or lesions noted LABS Laboratory Results - last 24 hr 02/22/20 02/22/20 02/22/20 06:23 06:23 08:05 WBC 10.0 RBC 4.39 Hgb 13.2 Hct 39.3 MCV 89.5 MCH 30.1 MCHC 33.6 RDW 14.1 Plt Count 114 L MPV 7.9 Absolute Neuts (auto) 6.9 Neutrophils % 68.3 Lymphocytes % 17.0 Monocytes % 8.7 Eosinophils % 5.5 H Basophils % 0.5 Nucleated RBC % 0 PTT (Actin FS) 34.9 Sodium 137 Potassium 4.3 Chloride 104 Carbon Dioxide 26 Anion Gap 7 L BUN 17.6 Creatinine 1.2 Est GFR (CKD-EPI)AfAm 74.14 Est GFR (CKD-EPI)NonAf 63.97 Random Glucose 93 Calcium 8.8 Phosphorus 2.8 Magnesium 2.2 TSH 1.73 D HOSPITAL COURSE: Date of Admission:02/18/20 -ECHO: EF 45-50%; Mild concentric LV hypertrophy; LV systolic function mildly reduced, mild global hypokinesis of LV, Grade I diastolic dysfunction -Doppler U/S showing L DVT -V/Q scan -- low probability PE -A 1.3 cm subpleural right lower lobe nodule is noted (transaxial images 81 - 89) containing several punctate internal lucencies. A completely calcified benign 1.4 cm right lower lobe granuloma is seen. There is also punctate calcified right upper lobe pulmonary granuloma. A 0.2 cm noncalcified nodule is seen within the left lower lobe laterally probably representing a granuloma. A small infiltrate is seen within the left lower lobe posteriorly adjacent to the costophrenic sulcus Date of Discharge: 02/22/20 Patient is a 64 year old male with history of hyperlipidemia, migraines, obesity, CKD presents with complaint of shortness of breath. He endorses symptoms ongoing for the past two days without clear inciting features. He noticed yesterday that he became suddenly short of breath after picking up his 40 pound grandson -usually he is able to ride bicycle and walk without any shortness of breath. Last evening patient endorses having to sleep sitting upright due to shotness of breath. Patient initially went to Urgent Care earlier today, however was noted that he desaturated to low 90s with light physical activity, prompting ED presentation. He does endorse diffuse myalgias. Denies sick contacts. Of note, patient had cardiac workup in January of this year with stress test which revealed EF low normal to 50%. Patient was admitted to the floors where he was worked up for r/o PE after finding a LLE DVT. V/Q scan showed low likely dahl. Ptn started on therapeutic lovenox. Due to rising white count and the infiltrate found on CT, ptn was started on Ceftriaxone with increased resolution of his SoB. Upon DC, Patient was called to clarify his Eliquis dosing to 10mg BID x7days, f ollowed by 5mg BID afterwards w/ followup with [facility]. Additionally started on Vantin 200mg BID x2 days and Azithro 250mg daily x2 days for completion of his antibiotic course. Ptn informed of all incidental findings during his stay and was given instructions to FU w/ outpatient consultants. At time of DC ptn was medically stable to go home. Minutes to complete discharge: 36 Discharge Summary Problems reviewed: Yes Reason For Visit: SHORTNESS OF BREATH CHF Current Active Problems Acquired solitary kidney (Chronic) DVT (deep venous thrombosis) (Chronic) Condition: Stable - Instructions Diet, Activity, Other Instructions: YOUR VISIT You came to the hospital because you were experiencing shortness of breath and chest pain, and left leg pain. You were admitted to the hospital for a condition called "Deep Vein Thrombosis" which we have started you on medication for. Additionally, you were found to have a lung infection which we treated with antibiotics. Lastly, you were found to have decreased heart function, which we have started you on medication for. You are now stable and may return home. Of note, during your stay, we also found the following which you can discuss with your doctors: 1.)CAT Scan: A 1.3 cm subpleural right lower lobe nodule containing several punctate internal lucencies. A completely calcified benign 1.4 cm right lower lobe granuloma is seen. There is also punctate calcified right upper lobe pulmonary granuloma. A 0.2 cm noncalcified nodule is seen within the left lower lobe laterally probably representing a granuloma, which you can discuss with Dr. Johnson 2.)CAT Scan: Evidence of gallstones, which you can discuss with Dr. Ku 3.)ECHO: EF 45-50%; Mild concentric LV hypertrophy; LV systolic function mildly reduced, mild global hypokinesis of LV, Grade I diastolic dysfunction, which you can discuss with Dr. Kelsey 4.)EKst degree AV block, which you can discuss with Dr. Kelsey 5.)Ultrasound: Left lower extremity deep vein thrombosis, which you can discuss with Dr. Jeffery MEDICATIONS Please STOP taking Propranolol 120mg, we are changing you to another medication for your blood pressure Please START taking Metoprolol Succinate 50mg daily for your blood pressure and heart function Please START taking Lisinopril 2.5mg daily for your blood pressure and heart function Please START taking Eliquis 10mg twice a day for 7 days, followed by 5mg twice a day (morning and night). We will send you a prescription for 1 month, however you will require a total course between 3-6 months. Please follow up with a cold press operator (referral provided) to determine the total duration of the course. Please START taking Vantin 200mg twice a day (morning and night) for 2 more days (total 4 pills) for your lung infection. Please START taking Azithromycin 250mg once a day, for 2 days (total 2 pills) for your lung infection. Please continue to take your home medications as prescribed. ADDITIONAL CARE Please make an appointment to see Dr. Michael Kelsey (Cardiology) within 1 week to discuss your heart function Please make an appointment to see Dr. Derrell Johnson (Pulmonology) within 1 week to discuss your recent lung infection Please make an appointment to see Dr. Tori Cornejo (Nephrology) within 1 week to discuss your kidney function and blood pressure Please make an appointment to see Dr. Joe Ku (Primary Care) within 2 weeks to discuss your recent hospital stay Please make an appointment to see Dr. Carina Jeffery (Hematology/Oncology) within 1 week to discuss your Eliquis which is a blood thinner ADDITIONAL INFORMATION Please call 911 or come directly to the emergency department if you experience recurrence of the symptoms that brought you to the hospital, unusual headache, vision change, shortness of breath, chest pain, numbness, tingling, loss of alertness/awareness, loss of function, unusual bleeding or any alarming symptoms. Referrals: Derrell Johnson MD [Staff Physician] - 1 Week Michael Kelsey MD [Staff Physician] - 1 Week (Acute on chronic HFpEF) Carina Jeffery MD [Staff Physician] - 1 Week (unprovoked DVT, hypercoagulable workup) Tori Cornejo MD [Staff Physician] - 1 Week Joe Ku MD [Primary Care Provider] - 2 Weeks Disposition: HOME - Home Medications Comprehensive Discharge Medication List: Ambulatory Orders Lovastatin 40 mg PO DAILY 01/06/20 Nortriptyline HCl [Pamelor -] 50 mg PO HS 01/06/20 Aspirin [Aspirin EC] 81 mg PO DAILY 02/19/20 Fish Oil 500 mg Softgel 1 tab PO DAILY 02/19/20 Multivit ([facility] Formulary) 1 tab PO DAILY 02/19/20 Apixaban [Eliquis] 5 mg PO BID 30 Days #60 tablet 02/22/20 Azithromycin 250 mg PO DAILY 2 Days #2 tablet 02/22/20 Cefpodoxime Proxetil [Vantin -] 200 mg PO Q12H 2 Days #4 tablet 02/22/20 Lisinopril [Prinivil] 2.5 mg PO DAILY 30 Days #30 tablet 02/22/20 Metoprolol Succinate [Toprol XL -] 50 mg PO DAILY 30 Days #30 tab.sr.24h 02/22/20 This patient is new to me today: No Emergency Visit: No Critical Care patient: No - Discharge Referral Referred to [facility] Med P.C.: No ATTENDING PHYSICIAN STATEMENT I saw and evaluated the patient. I reviewed the resident's note and discussed the case with the resident. I agree with the resident's findings and plan as documented. SUBJECTIVE: OBJECTIVE: ASSESSMENT AND PLAN:
== END 2020-02-22 18:44 | disposition home or self-care (01) | DRG 291 ==
LOC: JER 13:23 → JERBED 17:14 → J4S 02-19 03:54
DX: I13.0 Hypertensive heart and chronic kidney disease with heart failure and stage 1 through stage 4 chronic kidney disease, or unspecified chronic kidney disease (principal); I50.43 Acute on chronic combined systolic (congestive) and diastolic (congestive) heart failure; J18.9 Pneumonia, unspecified organism; I82.4Z2 Acute embolism and thrombosis of unspecified deep veins of left distal lower extremity; D72.829 Elevated white blood cell count, unspecified; N18.30 Chronic kidney disease, stage 3 unspecified; E78.5 Hyperlipidemia, unspecified; R91.1 Solitary pulmonary nodule; Z68.30 Body mass index [BMI] 30.0-30.9, adult; E66.01 Morbid (severe) obesity due to excess calories; Z90.5 Acquired absence of kidney; I44.7 Left bundle-branch block, unspecified; E83.39 Other disorders of phosphorus metabolism; K59.00 Constipation, unspecified
CPT/HCPCS: 36415; 71045-TC-FY; 71250-TC; 78582-TC; 80048; 80053; 81003; 82550; 82728; 83615; 83735; 83880; 84100; 84443; 84484; 85025; 85027; 85379; 85610; 85730; 86140; 87040; 87086; 87804; 87807; 93005; 93010; 93306-TC; 93970-TC; 99285-25; A9539; A9540; C9803; J1644; Q2036; U0003